=== PATIENT | female | born 1985 | race Caucasian/White ===

== ENCOUNTER 2024-02-25 09:05 | Emergency (ER) | payer MEDICAID, SELFPAY ==
[2024-02-25 09:19] VITALS: BP 99/64; PULSE 73; RESP 16; TEMP 36.6; O2SAT 97; BMI 29.9
--- OUTSIDE RECORDS SUMMARY | 2024-02-25 10:16 | XMS_ITS | Encounter Summary ---
Author Organization [facility] r Address [address] [place] [address] Care Team Providers Care Clinical Cytopathologist Name Role Phone Zunilda Veliz Primary Care Provider Encounter Details Date Type Department Care Team (Late st Contact Info) Description 01/23/2024 Orders Only [facility] [address] [facility] [address] [place] [address] Zunilda Veliz FNP [address] [facility] [address] [place] [address] Encounter for screening for malignant neoplasm of breast, unspecified screening modality Social History Tobacco Use Types Packs/Day Years Used Date Smoking Tobacco: Former Cigarettes 0.5 18 0 06/2003 - 06/2021 Smokeless Tobacco: Never Alcohol Use Standard Drinks/Week Comments No 0 (1 standard drink = 0.6 oz pur e alcohol) PHQ-2 Answer Date Recorded PHQ-2 Score 1 06/30/2021 Domestic Violence Screen Answer Date Re corded Physical Abuse Risk Not At Risk 07/28/2023 Verbal Abuse Risk Not At Risk 07/28/2023 Sex and Gender Information Value Date Recorded Sex Assigned at Female 01/14/2024 3:25 PM MST Gender Identity Female 01/14/2024 3:25 PM MST Sexual Orientation Straight 01/14/2024 3: 25 PM MST Job Start Date Occupation Industry Not on file Not on file Not on file documented as of this encounter Functional Status Functional Status Response Date of Assess ment Are you deaf or do you have difficulty hearing? No 01/12/2022 Are you blind or do you have serious difficulty seeing, even when wearing glasses? No 01/12/2022 Because of a physical, menta l, or emotional condition, do you have difficulty doing errands alone such as visiting a doctor's office or shopping? (15 years old or older) No 01/12/2022 Cognitive Status Response Date of Assessm ent Because of a physical, menta l, or emotional condition, do you have serious difficulty concentrating, remembering, or making decisions? (5 years old or older) No 01/12/2022 documented as of this encounter Plan of Treatment Not on file documented as of this encounter Visit Diagnoses Diagnosis Encounter for screening for malignant neoplasm of breast, unspecified screening modality documented in this encounter Additional Health Concerns Assessment Noted Time PHQ-9 Depression Total Score: 3 06/30/19 22 4:03 PM MST documented as of this encounter Care Teams Clinical Cytopathologist Relationship Specialty Start Date End Date Zunilda Veliz FNP [address] [facility] [address] [place] [id number] PCP - General Nurse Practitioner - Family 01/23/24 documented as of this encounter
--- OUTSIDE RECORDS SUMMARY | 2024-02-25 10:16 | XMS_ITS | Encounter Summary ---
Author Organization [facility] r Address [address] [place] [address] Care Team Providers Care Psychiatric Nurse Name Role Phone Zunilda Veliz Primary Care Provider Reason for Visit * Reason Onset Date Comments Other 01/25/2024 Encounter Details Date Type Department Care Team (Late st Contact Info) Description 01/25/2024 Telephone [facility] [address] [facility] [address] [place] [address] Zunilda Veliz FNP [address] [facility] [address] [place] [address] Other Social History Tobacco Use Types Packs/Day Years [...] No 01/12/2022 documented as of this encounter Progress Notes * Verona Leigh - 01/25/2024 10:12 AM MST Called pt and let her know I faxed the medical clearance form, labs, chest xray and EKG to surgeon,pt expresses understanding. * Kelly Boykin - 01/25/2024 9:36 AM MST Patient called and states she had multiple tests completed on 01/23/2024. Patient states these tests include lab work; UA; x-ray. Patient is requesting for all of these results to be faxed [facility]. Their fax number is , Attn: Vacuum Form Operator. documented in this encounter Plan of Treatment Not on file documented as of this encounter Visit Diagnoses Not on filedocumented in this encounter Additional Health Concerns Assessment Noted Time PHQ-9 Depression Total Score: 3 06/30/19 22 4:03 PM MST documented as of this encounter Care Teams Psychiatric Nurse Relationship Specialty Start Date End Date Zunilda Veliz FNP [address] [facility] [address] [place] [id number] PCP - General Nurse Practitioner - Family 01/23/24 documented as of this encounter
--- OUTSIDE RECORDS SUMMARY | 2024-02-25 10:16 | XMS_ITS | Encounter Summary ---
Author Organization [facility] r Address [address] [place] [address] Care Team Providers Care Powerhouse Tender Name Role Phone Zunilda Veliz ADAM Primary Care Provider Encounter Details Date Type Department Care Team (Latest Contact Info) Description 01/23/2024 Travel Social History Tobacco Use Types Packs/Day Years [...] Sex Assigned at Female 01/14/2024 3:25 PM [facility] Gender Identity Female 01/14/2024 3:25 PM [facility] Sexual Orientation Straight 01/14/2024 3: 25 PM [facility] Job Start Date Occupation Industry Not on [...] documented as of this encounter Care Teams Powerhouse Tender Relationship Specialty Start Date End Date Zunilda Veliz FNP [address] [facility] [address] [place] [address] PCP - General Nurse Practitioner - Family 01/23/24 documented as of this encounter
--- OUTSIDE RECORDS SUMMARY | 2024-02-25 10:16 | XMS_ITS | Clinical Summary ---
Author Organization [facility] r Address [address] [place] [address] Care Team Providers Care Public Safety Officer Name Role Phone Zunilda Veliz Primary Care Provider Allergies Active Allergy Reactions Criticality Noted Date Comments Dairy Products Diarrhea Medium 01/20/2022 Medications Medication Sig Dispensed Refills Start Date End Date Status vitamin multivitamin (THERAGRAN) tablet Take 1 tablet by mouth daily. Active Active Problems Problem Noted Date Diagnosed Date Insomnia 01/24/2022 Depression 01/24/[address] Kay on 01/23/2022 at [facility]. 2021 Fracture of tibial plafond 09/22/2019 Overview: Added automatically from request for surgery [id number] Resolved Problems Problem Noted Date Diagnosed Date Resolved Date Morbid obesity 01/12/2022 11/29/2022 Overview: Added automatically from request for surgery [id number] Encounters Date Type Department Care Team Description 01/25/2024 Telephone [facility] Geena Trejo [address] [place] [address] Zunilda Veliz FNP Other 01/23/2024 1:19 PM [facility] - 01/23/2024 11:59 PM [facility] Hospital Encounter Radiology General [address] [place] [address] Preoperative evaluation to rule out surgical contraindication Discharge Disposition: Home or Self Care 01/23/2024 1:10 PM [facility] Lab Draw IOP [facility]JO [address] [place] [address] [facility] Preoperative evaluation to rule out surgical contraindication 01/23/2024 11:20 AM [facility] Office Visit Karina Espinoza [address] [facility] [address] [place] [address] Zunilda Veliz FNP Preoperative evaluation to rule out surgical contraindication (Primary Dx); Encounter for screening for malignant neoplasm of breast, unspecified screening modality 01/23/2024 Orders Only Karina Espinoza [address] [facility] [address] [address] [place] [address] Zunilda Veliz FNP Encounter for screening for malignant neoplasm of breast, unspecified screening modality 01/23/2024 Travel from Last 3 Months Immunizations Name Administration Dates Next Due Influenza, seasonal, injectable 03/31/2014 MMR 09/14/2014,09/14/2014 PPD 09/16/2014,09/14/2014 tdap 03/31/2014 Family History Medical History Relation Comments Arthritis Mother Asthma Mother Diabetes Mother High Blood Pressure Mother High Cholesterol Mother Obesity Other Aneurysm Paternal Aunt Diabetes Paternal Aunt Relation Status Comments Father Alive Mother Alive Other Paternal Aunt Alive Social History Tobacco Use Types Packs/Day Years [...] Sex Assigned at Female 01/14/2024 3:25 PM [facility] Gender Identity Female 01/14/2024 3:25 PM [facility] Sexual Orientation Straight 01/14/2024 3: 25 PM [facility] Job Start Date Occupation Industry Not on file Not on file Not on file Last Filed Vital Signs Vital Sign Reading Time Taken Comments Blood Pressure 110/70 01/23/2024 11:10 AM [facility] Pulse 78 01/23/2024 11:10 AM [facility] Temperature 36.1 ??C (97 ??F) 01/23/2024 11:10 AM [facility] Respiratory Rate 18 01/23/2024 11:10 AM [facility] Oxygen Saturation 98% 01/23/2024 11:10 AM [facility] Inhaled Oxygen Concentration - - Weight 80.3 kg (177 lb) 01/23/2024 11:10 AM [facility] Height 162.6 cm (5' 4) 01/23/2024 11:10 AM [facility] Body Mass Index 30.38 01/23/2024 11:10 AM [facility] Plan of Treatment Health Maintenance Due Date Last Done Comments Hepatitis B (1 of 3 - 19+ 3-dose series) 2002 Cervical Cancer Screen Standard 3 Year Repeat 05/27/2023 05/27/2020 (Previously completed) Breast Cancer Screening 2023 Influenza (#1) 2023 03/31/2014 COVID-19 Vaccine ( - 2022-2 4 season) 2024 DTaP/Tdap/Td (2 - Td or Tdap) 03/31/2024 03/31/2014 Depression Screening 01/22/2025 01/23/2024, 06/30/2021, 06/30/2021 Hepatitis A Aged Out No longer eligi ble based on patient's age to complete this topic Pneumococcal <65 yr Aged Out No longe r eligible based on patient's age to complete this topic Medical Devices Implanted Type Area Veterinarian Assistant Device Identifier Shelf Expiration Date Model / Serial / Lot Screw Barbie P/T 4.0x38mm # [id number] S&N - [id number] Implanted:Qty: 1 on 09/25/2019 by Lazaro Conte MD at [facility] Screw Left: [employer] [id number] / / Screw Barbie 4.0 X 40mm Part-Thread # [id number] S&N - [id number] Implanted:Qty: 1 on 09/25/2019 by Lazaro Conte MD at [facility] Screw Left: [employer] [id number] / / Casey Barbie P-T 4.0x36mm [id number]# - [id number] Implanted:Qty: 1 on 09/25/2019 by Lazaro Conte MD at [facility] Left: [employer] [id number] / / Casey Valentin P/T 4.0x30mm - [id number] Implanted:Qty: 1 on 09/25/2019 by Lazaro Conte MD at [facility] Left: [employer] [id number] / / Screw Barbie P-T 4.0x34mm Ss - [id number] Implanted:Qty: 1 on 09/25/2019 by Lazaro Conte MD at [facility] Left: [employer] [id number] / / Scrw Barbie F-T 4.0x50 Ss Strl - [id number] Implanted:Qty: 1 on 09/25/2019 by Lazaro Conte MD at [facility] Left: [employer] [id number] / / Procedures Procedure Name Priority Date/Time Associated Diagnosis Comments CHEST PA & LATERAL ROUTINE 01/23/2024 2: 11 PM [facility] Preoperative evaluation to rule out surgical contraindication URINALYSIS (CX IF IND) ROUTINE 01/23/2024 1:04 PM [facility] Preoperative evaluation to rule out surgical contraindication HIV ANTIBODY/ANTIGEN SCREEN W/RFX ROUTINE 01/23/2024 11:53 AM [facility] Preoperative evaluation to rule out surgical contraindication HCG QUALITATIVE ROUTINE 01/23/2024 11:53 AM [facility] Preoperative evaluation to rule out surgical contraindication FREE T4 ROUTINE 01/23/2024 11:53 AM [facility] Preoperative evaluation to rule out surgical contraindication T3 FREE ROUTINE 01/23/2024 11:53 AM [facility] Preoperative evaluation to rule out surgical contraindication ACTIVATED PTT ROUTINE 01/23/2024 11:53 AM [facility] Preoperative evaluation to rule out surgical contraindication PROTIME/INR ROUTINE 01/23/2024 11:53 AM [facility] Preoperative evaluation to rule out surgical contraindication CBC W/AUTO DIFF ROUTINE 01/23/2024 11:53 AM [facility] Preoperative evaluation to rule out surgical contraindication TSH (REFLEX FREE T4) ROUTINE 01/23/2024 11:53 AM [facility] Preoperative evaluation to rule out surgical contraindication HGA1C ROUTINE 01/23/2024 11:53 AM [facility] Preoperative evaluation to rule out surgical contraindication COMP METABOLIC PANEL ROUTINE 01/23/2024 11:53 AM [facility] Preoperative evaluation to rule out surgical contraindication LIPID PANEL ROUTINE 01/23/2024 11:53 AM [facility] Preoperative evaluation to rule out surgical contraindication PREALBUMIN ROUTINE 01/23/2024 11:53 AM [facility] Preoperative evaluation to rule out surgical contraindication ECG 12 LEADS WITH INTERP ROUTINE 01/23/2024 11:43 AM [facility] Preoperative evaluation to rule out surgical contraindication from Last 3 Months Results * Chest 2 views PA and Lateral (01/23/2024 2:11 PM [facility]) Anatomical Region Laterality Modality Chest Radiographic Sanjana ging 01/23/2024 2:19 PM [facility] Impressions 01/23/2024 2:20 PM [facility] No active disease. Narrative 01/23/2024 2:20 PM [facility] -- Final Radiology Report Patient Name: SHARON REIS Date of : 1985 Patient Accession Number: [id number] Date of Service: 01/23/2024 DATE OF EXAM: 01/23/2024 EXAMINATION: CHEST PA AND LATERAL, 1346 hours CLINICAL INDICATION: preoperative clearance. COMPARISON: Radiograph chest, 10/04/2021, [facility] FINDINGS: PA and lateral views of the chest obtained. The lungs are clear of consolidation or edema. The cardiomediastinal silhouette and hilar contours are normal. There is no pneumothorax or pleural effusion. There are no significant osseous abnormalities. Procedure Note Ayush Kim MD - 01/23/2024 [facility] -- Final Radiology Report Patient Name: SHARON REIS Date of : 1985 Patient Accession Number: [id number] Date of Service: 01/23/2024 DATE OF EXAM: 01/23/2024 EXAMINATION: CHEST PA AND LATERAL, 1346 hours CLINICAL INDICATION: preoperative clearance. COMPARISON: Radiograph chest, 10/04/2021, [facility] FINDINGS: PA and lateral views of the chest obtained. The lungs are clear ofconsolidation or edema. The cardiomediastinal silhouette and hilarcontours are normal. There is no pneumothorax or pleural effusion. Thereare no significant osseous abnormalities. IMPRESSION No active disease. Zunilda Veliz [facility] RADIOLOGY GENER AL IMAGING * (ABNORMAL) Urinalysis w Micro (Cx if Ind) (LC [id number] / SQ [id number]) (01/23/2024 1:04 PM [facility]) Color, Urine Yellow Colorless, Yellow 01/23/2024 3:49 PM [facility] Appearance, Urine Clear Clear 01/23/2024 3:49 PM [facility] Specific [place], Urine 1.013 1.005 - 1.030 01/23/2024 3:49 PM [facility] pH, Urine 7.0 4.5 - 8.0 01/23/2024 3:49 PM [facility] Protein, Urine Negative Negative 01/23/2024 3:49 PM [facility] Glucose, Urine 2+(A) Negative 01/23/2024 3:49 PM [facility] Ketones, Urine Negative Negative 01/23/2024 3:49 PM [facility] Bilirubin, Urine Negative Negative 01/23/2024 3:49 PM [facility] Blood, Urine Negative Negative, Trace 01/23/2024 3:49 PM [facility] Leukocytes, Urine Negative Negative 01/23/2024 3:49 PM [facility] Nitrites, Urine Negative Negative 01/23/2024 3:49 PM [facility] Urobilinogen, Urine Normal Normal 01/23/2024 3:49 PM [facility] Urine RBC <1 <=2 /hpf 01/23/2024 3:49 PM [facility] Urine WBC 1 <=5 /hpf 01/23/2024 3:49 PM [facility] Urine Bacteria OCC(A) None seen /hpf 01/23/2024 3:49 PM [facility] Squamous Epithelial Cells FEW(A) None seen /lpf 01/23/2024 3:49 PM [facility] Urine URINE SPECIMEN OBTAINED BY CLEAN CATCH PROCEDURE / Unknown 01/23/2024 1:04 PM [facility] 01/23/2024 1:[address] [facility] - 01/23/2024 3:49 PM [facility] Culture not indicated by urine screen. Zunilda Veliz [facility] URINE ORDER PURA [facility] [address] [place], [place] [address] [phone] * HIV Antibody/Antigen Screen w/Rfx Confirmation (01/23/2024 11:53 AM [facility]) Pathologist [facility] HIV Ab/Ag Screen Non-reacti ve Non-reacti ve 01/23/2024 4:24 PM [facility] Blood VENOUS BLOOD / Unknown Venipuncture / Unknown 01/23/2024 11:53 AM [facility] 01/23/2024 11:53 AM [facility] Narrative [facility] - 01/23/2024 4:24 PM [facility] Considered negative for HIV p24 antigen and HIV specific antibodies; does not require further testing. Zunilda Veliz [facility] BLOOD ORDER PUR[facility] [address] [place], [place] [address] [phone] * (ABNORMAL) Lipid Panel (01/23/2024 11:53 AM [facility]) [facility] Cholesterol 141 <200 mg/dL 01/23/2024 3:48 PM [facility] Triglyceride 54 <150 mg/dL 01/23/2024 3:48 PM [facility] HDL, Direct 39(L) >40 mg/dL 01/23/2024 3:48 PM [facility] LDL Direct 95.00 <100.00 mg/dL 01/23/2024 3:48 PM [facility] VLDL 10.8 01/23/2024 3:48 PM [facility] LDL/HDL Ratio 2.44 0.00 - 3.55 mg/dL 01/23/2024 3:48 PM [facility] Blood VENOUS BLOOD / Unknown Venipuncture / Unknown 01/23/2024 11:53 AM [facility] 01/23/2024 11:[address] [facility] - 01/23/2024 3:48 PM [facility] Total Cholesterol with Risk Classification <200 mg/dL is Desirable 200-239 mg/dL is Borderline High >240 mg/dL is High The guidelines classify HDL- Cholesterol levels as follows: < 40 mg/dL as indicative of a major risk factor for Coronary Heart Disease. > 60 mg/dL as a negative risk factor for Coronary Heart Disease. The guidelines classify LDL - Cholesterol levels as follows: < 100 mg/dL - Optimal 100-129 mg/dL - Near optimal 131-159 mg/dL - Borderline High 160-189 mg/dL - High 190 mg/dL - Very High Triglycerides <150 mg/dL The guidelines classify Triglyceride levels as follows: <150 mg/dL - Normal 150-199 mg/dL - Borderline High 200-499 mg/dL - High 500 mg/dL - Very High Zunilda Veliz [facility] BLOOD ORDER PURA [facility] [address] [place] [address], [facility] [phone] * (ABNORMAL) CBC w/Diff (SQ 3000 / LC [id number]) (01/23/2024 11:53 AM [facility]) [facility] White Cell count 7.9 4.0 - 11.0 10*3/uL 01/23/2024 3:34 PM [facility] Red Cell count 4.29 4.20 - 5.40 m/uL 01/23/2024 3:34 PM [facility] Hemoglobin 14.1 12.0 - 16.0 g/dL 01/23/2024 3:34 PM [facility] HCT 41.6 35.0 - 50.0 % 01/23/2024 3:34 PM [facility] MCV 96.9 80.0 - 100.0 fL 01/23/2024 3:34 PM [facility] MCH 32.8(H) 27.0 - 31.0 pg 01/23/2024 3:34 PM [facility] MCHC 33.8 32.0 - 36.0 g/dL 01/23/2024 3:34 PM [facility] RDW 13.1 11.5 - 14.5 % 01/23/2024 3:34 PM [facility] Platelet count 234 130 - 450 k/uL 01/23/2024 3:34 PM [facility] MPV 10.2 7.4 - 10.4 fL 01/23/2024 3:34 PM [facility] Neutrophils % 60.8 54.0 - 62.0 % 01/23/2024 3:34 PM [facility] Lymphocytes % 30.2 25.0 - 35.0 % 01/23/2024 3:34 PM [facility] Monocytes % 6.9 5.5 - 11.7 % 01/23/2024 3:34 PM [facility] Eosinophils % 1.4 0.0 - 5.0 % 01/23/2024 3:34 PM [facility] Basophils % 0.7 0.0 - 2.9 % 01/23/2024 3:34 PM [facility] Absolute Neutrophils 4.8 1.7 - 7.6 k/uL 01/23/2024 3:34 PM [facility] Absolute Lymphocytes 2.4 1.0 - 3.2 k/uL 01/23/2024 3:34 PM [facility] Absolute Monocytes 0.5 0.3 - 1.1 k/uL 01/23/2024 3:34 PM [facility] Absolute Eosinophils 0.1 0.0 - 0.5 k/uL 01/23/2024 3:34 PM [facility] Absolute Basophils 0.1 0.0 - 0.1 k/uL 01/23/2024 3:34 PM [facility] Blood VENOUS BLOOD / Unknown Venipuncture / Unknown 01/23/2024 11:53 AM [facility] 01/23/2024 11:53 AM [facility] Zunilda Veliz [facility] BLOOD ORDER PURA [facility] [address] [place], [place] [address] [phone] * Tsh (Reflex Free T4) (01/23/2024 11:53 AM [facility]) TSH 2.55 0.45 - 5.33 uIU/mL 01/23/2024 4:04 PM [facility] Blood VENOUS BLOOD / Unknown Venipuncture / Unknown 01/23/2024 11:53 AM [facility] 01/23/2024 11:53 AM [facility] Narrative [facility] - 01/23/2024 4:04 PM [facility] Reference range is for general population including males and non- females, ages 21-88. Reference ranges for individuals are as follows: 1st Trimester: 0.05-3.70 uIU/mL 2nd Trimester: 0.31-4.35 uIU/mL 3rd Trimester: 0.41-5.18 uIU/mL Zunilda Veliz [facility] BLOOD ORDER PURA Performing Organization Address City/[facility] de Phone Number [facility] [address] [place], [place] [address] [phone] * Prealbumin (SQ 9628 / LC [id number]) (01/23/2024 11:53 AM [facility]) Prealbumin 20.0 17.0 - 34.0 mg/dL 01/23/2024 5:01 PM [facility] Blood VENOUS BLOOD / Unknown Venipuncture / Unknown 01/23/2024 11:53 AM [facility] 01/23/2024 11:53 AM [facility] Zunilda Veliz [facility] BLOOD ORDER PURA Performing Organization Address [facility] de Phone Number [facility] [address] [place], [place] [address] [phone] * Free T3 (01/23/2024 11:53 AM [facility]) Free T3 3.48 2.50 - 3.90 pg/mL 01/23/2024 5:00 PM [facility] Blood VENOUS BLOOD / Unknown Venipuncture / Unknown 01/23/2024 11:53 AM [facility] 01/23/2024 11:53 AM [facility] Zunilda Veliz [facility] BLOOD ORDER PURA Performing Organization Address City/[facility]/ZIP Co de Phone Number [facility] [address] [place], [place] [address] [phone] * Activated PTT (SQ 3505 / LC [id number]) (01/23/2024 11:53 AM [facility]) aPTT 28.6 25.1 - 36.5 secs 01/23/2024 3:22 PM [facility] Blood VENOUS BLOOD / Unknown Venipuncture / Unknown 01/23/2024 11:53 AM [facility] 01/23/2024 11:53 AM [facility] Zunilda Veliz [facility] BLOOD ORDER PURA Performing Organization Address [facility] de Phone Number [facility] [address] [place], [place] [address] [phone] * PT/INR (LC [id number]/SQ 3500) (01/23/2024 11:53 AM [facility]) Protime 12.1 9.4 - 12.6 secs 01/23/2024 3:20 PM [facility] INR 1.04 0.90 - 1.20 01/23/2024 3:20 PM [facility] Blood VENOUS BLOOD / Unknown Venipuncture / Unknown 01/23/2024 11:53 AM [facility] 01/23/2024 11:53 AM [facility] Narrative [facility] - 01/23/2024 3:20 PM [facility] THERAPEUTIC RANGES: 2.0-3.0: PROPHYLAXIS, VENOUS THROMBOSIS, PULMONARY EMBOLISM, PREVENTION OF SYSTEMIC EMBOLISM, TISSUE HEART ??VALVES, ACUTE MYOCARDIAL INFARCTION, ??VALVULAR HEART DISEASE, ATRIAL ??FIBRILLATION. 2.5-3.5: RECURRENT SYSTEMIC EMBOLISM, ??MECHANICAL PROSTHETIC VALVES. Zunilda Veliz [employer] LAB BLOOD ORDER PURA Performing Organization Address [facility] Co de Phone Number [facility] [address] [place], [place] [address] [phone] * Free T4 (LC [id number] / SQ 8899) (01/23/2024 11:53 AM [facility]) Pathologist [facility] Free T4 0.740 0.610 - 1.340 ng/dL 01/23/2024 4:05 PM [facility] Blood VENOUS BLOOD / Unknown Venipuncture / Unknown 01/23/2024 11:53 AM [facility] 01/23/2024 11:53 AM [facility] Zunilda Saba Veliz [facility] BLOOD ORDER PURA [facility] [address] [place], [place] [address] [phone] * HCG, Beta Subunit, Qual (SQ 8076 / 196975) (01/23/2024 11:53 AM [facility]) [facility] Serum test Negative Negative 01/23/2024 4:45 PM [facility] Blood VENOUS BLOOD / Unknown Venipuncture / Unknown 01/23/2024 11:53 AM [facility] 01/23/2024 11:53 AM [facility] Zunilda Veliz [facility] BLOOD ORDER [facility] Performing Organization Address City/[facility] Co de Phone Number [facility] [address] [place], [place] [address] [phone] * HgA1c (01/23/2024 11:53 AM [facility]) [facility] Glycosolated Hgb 4.9 4.0 - 5.6 % 01/23/2024 4:26 PM [facility] Estimated Average Glucose (Calculated) 94 mg/dL 01/23/2024 4:26 PM [facility] Blood VENOUS BLOOD / Unknown Venipuncture / Unknown 01/23/2024 11:53 AM [facility] 01/23/2024 11:[address] [facility] - 01/23/2024 4:26 PM [facility] The following HbA1c ranges recommended by the [place] [employer] Association (ADA) may be used as an aid in the diagnosis of diabetes mellitus: >=6.5% Suggested diagnosis: Diabetic 5.7-6.4% Suggested diagnosis: Pre-Diabetic <5.7% Suggested diagnosis: Non-Diabetic Zunilda Veliz [facility] BLOOD ORDER PURA [facility] [address] [place] [address], [facility] [phone] * Comprehensive Metabolic Panel (CMP) (01/23/2024 11:53 AM [facility]) [facility] Glucose 106 74 - 109 mg/dL 01/23/2024 3:48 PM [facility] BUN 9 7 - 25 mg/dL 01/23/2024 3:48 PM [facility] Creatinine 0.8 0.6 - 1.3 mg/dL 01/23/2024 3:48 PM [facility] Bilirubin Total 0.7 0.2 - 1.2 mg/dL 01/23/2024 3:48 PM [facility] Protein, Total 7.8 6.0 - 8.3 g/dL 01/23/2024 3:48 PM [facility] Albumin 4.6 3.5 - 5.7 g/dL 01/23/2024 3:48 PM [facility] [facility] Alkaline Phosphatase 73 35 - 105 u/L 01/23/2024 3:48 PM [facility] AST 22 13 - 39 u/L 01/23/2024 3:48 PM [facility] ALT 23 7 - 52 u/L 01/23/2024 3:48 PM [facility] Calcium 9.3 8.6 - 10.3 mg/dL 01/23/2024 3:48 PM [facility] Sodium 140 136 - 145 mmol/L 01/23/2024 3:48 PM [facility] Potassium 4.1 3.4 - 5.1 mmol/L 01/23/2024 3:48 PM [facility] Chloride 106 98 - 107 mmol/L 01/23/2024 3:48 PM [facility] CO2 26 21 - 31 mmol/L 01/23/2024 3:48 PM [facility] eGFR >60 >=60 mL/min/1.7 3m2 01/23/2024 3:48 PM [facility] Blood VENOUS BLOOD / Unknown Venipuncture / Unknown 01/23/2024 11:53 AM [facility] 01/23/2024 11:53 AM [facility] Narrative [facility] - 01/23/2024 3:48 PM [facility] Albumin Recumbent Adult: 3.5-5.0 g/dL Ambulatory Female: 3.7-5.3 g/dL Ambulatory Male: 4.2-5.5 g/dL Glucose ??FASTING Non-Diabetic ? 70-99 mg/dL Pre-Diabetic ? 100-125 mg/dL Diabetes ? 126 mg/dL or higher ??NON-FASTING Random Glucose ? 70-140 mg/dL 2 hr PP in diabetes ?<=180 mg/dL Random Glucose Diabetic ??>200 mg/dL Z[facility] BLOOD ORDER PURA [facility] [address], [place] [address] [phone] * EKG 12 Lead w/Interp (01/23/2024 11:43 AM [facility]) 01/23/2024 11:4 3 AM [facility] Zunilda SALMERONP EKG AMBULATORY ORDERABLES from Last 3 Months Insurance Payer Benefit Plan / Group Subscriber ID Effective Dates Phone Address Type [facility] Social 2 Step [id number] Effective for all dates [phone] [place] [address] [facility] COMPLETE CARE PLAN [id number] 12/21/2020-Prese nt [address] [place] [id number] [place] [address] [facility] COMPLETE CARE PLAN [id number] 01/26/2019-Kaitlin silva [address] [place] [address] Advance Directives For more information, please contact: [phone] * Full Code (Latest Code Status on File) Date Activated Date Inactivated Comments 01/23/2022 7:14 PM 01/24/2022 3:24 PM * Full Code Date Activated Date Inactivated Comments 09/25/2019 6:39 AM 09/25/2019 12:58 PM Care Teams Public Safety Officer Relationship Specialty Start Date End Date Zunilda Veliz FNP [address] [place] [address] [id number] PCP - General Nurse Practitioner - Family 01/23/24
--- OUTSIDE RECORDS SUMMARY | 2024-02-25 10:16 | XMS_ITS | Encounter Summary ---
Author Organization [facility] Address [address] [place] [address] Care Team Providers Care Plant Superintendent Name Role Phone Zunilda Veliz Primary Care Provider Reason for Referral * Radiology Services (Routine) - Authorized Specialty Diagnoses / Procedures Referred By Filipe silva Referred To Contact Radiology Diagnoses Preoperative evaluation to rule out surgical contraindication Procedures Chest 2 views PA and Lateral Zunilda Veliz FNP [address] [place] [address] Referral ID Status Reason Start Date Expiration Date V isits Requested Visits Authorized [id number] Authorized 01/23/2024 01/22/2025 1 1 [facility] Reason for Visit * Radiology Services (Routine) - Authorized Specialty Diagnoses / Procedures Referred By Filipe silva Referred To Contact Radiology Diagnoses Preoperative evaluation to rule out surgical contraindication Procedures Chest 2 views PA and Lateral Zunilda Veliz FNP [address] [place] [address] Referral ID Status Reason Start Date Expiration Date V isits Requested Visits Authorized [id number] Authorized 01/23/2024 01/22/2025 1 1 Encounter Details Date Type Department Care Team (Latest Contact Info) Description 01/23/2024 1:19 PM [facility] - 01/23/2024 11:59 PM [facility] Hospital Encounter Radiology General [address], [place] [id number] Preoperative evaluation to rule out surgical contraindication Discharge Disposition: Home or Self Care Social History Tobacco Use Types Packs/Day Years [...] Sex Assigned at Female 01/14/2024 3:25 PM [facility] Gender Identity Female 01/14/2024 3:25 PM [facility] Sexual Orientation Straight 01/14/2024 3: 25 PM [facility] Job Start Date Occupation Industry Not on [...] No 01/12/2022 documented as of this encounter Medications at Time of Discharge Medication Sig Dispensed Refills Start Date End Date vitamin multivitamin (THERAGRAN) tablet Take 1 tablet by mouth daily. documented as of this encounter Progress Notes * Zunilda Veliz FNP - 01/24/2024 7:01 AM [facility] Chest x-ray was normal [facility] documented in this encounter Plan of Treatment Not on file documented as of this encounter Procedures Procedure Name Priority Date/Time Associated Diagnosis Comments CHEST PA & LATERAL ROUTINE 01/23/2024 2:11 PM [facility] Preoperative evaluation to rule out surgical contraindication documented in this encounter Results * Chest 2 views PA and Lateral (01/23/2024 2:11 PM [facility]) Anatomical Region Laterality Modality Chest Radiographic Sanjana ging 01/23/2024 2:19 PM [facility] Impressions 01/23/2024 2:20 PM [facility] No active disease. Narrative 01/23/2024 2:20 PM [facility] -- Final Radiology Report Patient Name: TERESA REIS Date of : 1985 Patient Accession Number: [id number] Date of Service: 01/23/2024 DATE OF EXAM: [...] Procedure Note Ayush Kim MD - 01/23/2024 [facility] -- Final Radiology Report Patient Name: TERESA REIS Date of : 1985 Patient Accession Number: [id number] Date of Service: 01/23/2024 DATE OF EXAM: [...] osseous abnormalities. IMPRESSION No active disease. Zunilda [facility] documented in this encounter Visit Diagnoses Diagnosis Preoperative evaluation to rule out surgical contraindication Other specified pre-operative examination documented in this encounter Additional Health Concerns Assessment Noted Time PHQ-9 Depression Total Score: 3 06/30/19 22 4:03 PM [facility] documented as of this encounter Care Teams Plant Superintendent Relationship Specialty Start Date End Date Zunilda Veliz FNP [address] [facility] [address] [facility] [address] [place] [id number] PCP - General Nurse Practitioner - Family 01/23/24 documented as of this encounter
--- OUTSIDE RECORDS SUMMARY | 2024-02-25 10:16 | XMS_ITS | Encounter Summary ---
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 Name Role Phone Zunilda Veliz ADAM Primary Care Provider Encounter Details Date Type Department Care Team (Late st Contact Info) Description 01/23/2024 1:10 PM [facility] Lab Draw IOP [facility] [address] [facility] [address] [address] [place] [phone] [facility], [facility] Preoperative evaluation to rule out surgical contraindication Social History Tobacco Use Types Packs/Day Years [...] Sex Assigned at Female 01/14/2024 3:25 PM [facility] Gender Identity Female 01/14/2024 3:25 PM [facility] Sexual Orientation Straight 01/14/2024 3: 25 PM [facility] Job Start Date Occupation Industry Not on [...] Progress Notes * Zunilda Veliz FNP - 01/23/2024 1:10 PM [facility] Urinalysis was negative for infection. The prealbumin was normal documented in this encounter Plan of Treatment Not on file documented as of this encounter Procedures Procedure Name Priority Date/Time Associated Diagnosis Comments URINALYSIS (CX IF IND) ROUTINE 01/23/2024 1:04 PM [facility] Preoperative evaluation to rule out surgical contraindication PREALBUMIN ROUTINE 01/23/2024 11:53 AM [facility] Preoperative evaluation to rule out surgical contraindication documented in this encounter Results * (ABNORMAL) Urinalysis w Micro (Cx if Ind) (LC [id number] / SQ [id number]) (01/23/2024 1:04 PM [facility]) Color, Urine Yellow Colorless, Yellow 01/23/2024 3:49 PM [facility] Appearance, Urine Clear Clear 01/23/2024 3:49 PM [facility] Specific [place], Urine 1.013 1.005 - 1.030 01/23/2024 3:49 PM [facility] pH, Urine 7.0 4.5 - 8.0 01/23/2024 3:49 PM [facility] Protein, Urine Negative Negative 01/23/2024 3:49 PM [facility] Glucose, Urine 2+(A) Negative 01/23/2024 3:49 PM [facility] Ketones, Urine Negative Negative 01/23/2024 3:49 PM [facility] Bilirubin, Urine Negative Negative 01/23/2024 3:49 PM [facility] Blood, Urine Negative Negative, Trace 01/23/2024 3:49 PM [facility] Leukocytes, Urine Negative Negative 01/23/2024 3:49 PM [facility] Nitrites, Urine Negative Negative 01/23/2024 3:49 PM [facility] Urobilinogen, Urine Normal Normal 01/23/2024 3:49 PM [facility] Urine RBC <1 <=2 /hpf 01/23/2024 3:49 PM [facility] Urine WBC 1 <=5 /hpf 01/23/2024 3:49 PM [facility] Urine Bacteria OCC(A) None seen /hpf 01/23/2024 3:49 PM [facility] Squamous Epithelial Cells FEW(A) None seen /lpf 01/23/2024 3:49 PM [facility] Urine URINE SPECIMEN OBTAINED BY CLEAN CATCH PROCEDURE / Unknown 01/23/2024 1:04 PM [facility] 01/23/2024 1:[address] [facility] - 01/23/2024 3:49 PM [facility] Culture not indicated by urine screen. Zunilda Veliz [facility] URINE ORDER PURA [facility] [address] [place], [place] [address] [phone] * Prealbumin (SQ 9628 / LC [id number]) (01/23/2024 11:53 AM [facility]) Prealbumin 20.0 17.0 - 34.0 mg/dL 01/23/2024 5:01 PM [facility] Blood VENOUS BLOOD / Unknown Venipuncture / Unknown 01/23/2024 11:53 AM [facility] 01/23/2024 11:53 AM [facility] Zunilda Veliz [facility] BLOOD ORDER PURA [facility] [address] [place], [place] [address] [phone] documented in this encounter Visit Diagnoses Diagnosis Preoperative evaluation to rule out surgical contraindication Other specified pre-operative examination documented in this encounter Additional Health Concerns Assessment Noted Time PHQ-9 Depression Total Score: 3 06/30/19 22 4:03 PM [facility] documented as of this encounter Care Teams [employer]rop [place] [employer] Relationship Specialty Start Date End Date Zunilda Veliz FNP [address] [facility] [address] [place] [address] PCP - General Nurse Practitioner - Family 01/23/24 documented as of this encounter
--- OUTSIDE RECORDS SUMMARY | 2024-02-25 10:16 | XMS_ITS | Encounter Summary ---
Author Organization [facility] r Address [address] [place] [address] Care Team Providers Care Energy Rater Name Role Phone Zunilda Veliz Primary Care Provider Reason for Referral * Radiology Services (Routine) - Authorized Specialty Diagnoses / Procedures Referred By Contjami silva Referred To Contact Radiology Diagnoses Preoperative evaluation to rule out surgical contraindication Procedures Chest 2 views PA and Lateral Zunilda Veliz FNP [address] [place] [address] Referral ID Status Reason Start Date Expiration Date V isits Requested Visits Authorized [id number] Authorized 01/23/2024 01/22/2025 1 1 * Radiology Services (Routine) - Authorized Specialty Diagnoses / Procedures Referred By Contact Referred To Contact Radiology - Diagnostic Diagnoses Preoperative evaluation to rule out surgical contraindication Procedures Chest 2 views PA and Lateral Zunilda Veliz FNP [address] [place] [address] [facility] [address] [place] [address] Referral ID Status Reason Start Date Expiration Date V isits Requested Visits Authorized [id number] Authorized 01/23/2024 01/22/2025 1 1 * Other (Routine) - Closed Specialty Diagnoses / Procedures Referred By Filipe silva Referred To Contact Mammography Diagnoses Encounter for screening for malignant neoplasm of breast, unspecified screening modality Procedures Bilateral Digital screening mammogram with CAD Zunilda Veliz FNP [address] [place] [address] Referral ID Status Reason Start Date Expiration Date Visits Re quested Visits Authorized [id number] Closed 01/23/2024 01/22/2025 1 1 [facility] Reason for Visit * Reason Comments MEDICAL CLEARANCE Pt is having surgery on 02/13/24 on [facility] Encounter Details Date Type Department Care Team (Latest Contact Info) Description 01/23/2024 11:20 AM [facility] Office Visit Karina Espinoza [address] [place] [phone] Zunilda Veliz FNP [address] [place], [place] [id number] Preoperative evaluation to rule out surgical contraindication [...] Sex Assigned at Female 01/14/2024 3:25 PM [facility] Gender Identity Female 01/14/2024 3:25 PM [facility] Sexual Orientation Straight 01/14/2024 3: 25 PM [facility] Job Start Date Occupation Industry Not on file Not on file Not on file documented as of this encounter Last Filed Vital Signs Vital Sign Reading Time Taken Comments Blood Pressure 110/70 01/23/2024 11:10 AM [facility] Pulse 78 01/23/2024 11:10 AM [facility] Temperature 36.1 ??C (97 ??F) 01/23/2024 11:10 AM MST Respiratory Rate 18 01/23/2024 11:10 AM MST Oxygen Saturation 98% 01/23/2024 11:10 AM MST Inhaled Oxygen Concentration - - Weight 80.3 kg (177 lb) 01/23/2024 11:10 AM [facility] Height 162.6 cm (5' 4) 01/23/2024 11:10 AM MST Body Mass Index 30.38 01/23/2024 11:10 AM MST documented in this encounter Functional Status Functional Status Response [...] No 01/12/2022 documented as of this encounter Patient Instructions * Patient Instructions* Zunilda Veliz FNP - 01/23/2024 11:20 AM MST documented in this encounter Progress Notes * Zunilda Veliz FNP - 01/23/2024 11:20 AM MST The labs show the cholesterol, thyroid, HIV, kidneys, liver and electrolytes, clotting times are all normal. test is negative. No anemia, infection or diabetes. * Zunilda Veliz FNP - 01/23/2024 11:20 AM MST Subjective: Patient ID: Sharon Reis is a 38 year old female. Chief Complaint: Chief Complaint Patient presents with MEDICAL CLEARANCE Pt is having surgery on 02/13/24 on [facility] HPI Addendum on 01/25/2024: Physical exam is WNL The labs show the prealbumin, cholesterol, thyroid, HIV, kidneys, liver and electrolytes, PT/INR, PTT, urinalysis are all normal. test is negative. No anemia, infection or diabetes. CXR is negative for abnormality 12 lead EKG is normal From a medical perspective there is no abnormality that would necessitate postponing surgical procedure. Sharon is here for preoperative clearance. She is scheduled for liposuction and abdominoplasty. Per her medical form this has to be completed by an MD or DO. 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 There is now documentation that the form can be signed by an CONSTRUCTION SITE MANAGER. This is scanned into the chart. Procedure: Liposuction with fat transfer to buttocks. Abdominoplasty 2 Lipo areas Date of surgery: 02/13/2024 Surgeon: Rafael Christy MD [place], [place] Health Maintenance: Last comprehensive exam: 01/23/2024 Cervical cancer screening: PAP 2020 normal, advised to schedule repeat LMP: 12/27/2023 Contraception: tubal ligation Cholesterol Screenin01/23/2024 TC 141 TRI 54 HDL 39 LDL 95 Diabetes screenin01/23/2024 A1c 4.9 Outpatient Medications Marked as Taking for the 01/23/24 encounter (Office Visit) with Zunilda Veliz FNP Medication Sig Dispense Refill vitamin multivitamin (THERAGRAN) tablet Take 1 tablet by mouth daily. Past Medical History: Diagnosis Date Anxiety state Depression Exercise tolerance finding 01/20/2022 walks 30 min a day no cp, sob or dizziness Frequent UTI GERD (gastroesophageal reflux disease) 09/19/2021 Denies Heartburn acid reflux Past Surgical History: Procedure Laterality Date SECTION x4 FRACTURE SURGERY Left ankle hardware in GASTRIC BYPASS SURGERY 01/23/2022 OTHER SURG HX(HX ONLY) c-sectionx4 OTHER SURG HX(HX ONLY) colonoscopy TUBAL LIGATION Family History Problem Relation Age of Onset Arthritis Mother Asthma Mother Diabetes Mother High Blood Pressure Mother High Cholesterol Mother Aneurysm Paternal Aunt Diabetes Paternal Aunt Obesity Other Review of patient's allergies indicates: Allergen Reactions Dairy Products Diarrhea Immunization History Administered Date(s) Administered Influenza, seasonal, injectable 03/31/2014 MMR 09/14/2014, 09/14/2014 PPD 09/14/2014, 09/16/2014 tdap 03/31/2014 Patient's medications, allergies, past medical, social, surgical and family histories were reviewedand updated as appropriate. Review of Systems Constitutional: Negative. HENT: Negative. Eyes: Negative. Negative for visual disturbance. Respiratory: Negative. Negative for cough and shortness of breath. Cardiovascular: Negative. Negative for chest pain, palpitations and leg swelling. Gastrointestinal: Negative for abdominal pain, constipation, diarrhea, nausea and vomiting. Endocrine: Negative. Negative for cold intolerance. Genitourinary: Negative. Negative for difficulty urinating, dysuria and urgency. Musculoskeletal: Negative. Negative for arthralgias and back pain. Skin: Negative. Allergic/Immunologic: Negative. Neurological: Negative. Negative for dizziness, tremors, weakness and headaches. Hematological: Negative. Psychiatric/Behavioral: Negative. Objective: Blood pressure 110/70, pulse 78, temperature 36.1 ??C (97 ??F), temperature source Temporal, resp. rate 18, height 1.626 m (5' 4), weight 80.3 kg (177 lb), SpO2 98%.Body mass index is 30.38 kg/m??.Pain Score: 0 - No pain Physical Exam Vitals and nursing note reviewed. Constitutional: General: She is not in acute distress. Appearance: Normal appearance. She is obese. She is not ill-appearing. HENT: Head: Normocephalic and atraumatic. Right Ear: Tympanic membrane, ear canal and external ear normal. Left Ear: Tympanic membrane, ear canal and external ear normal. Nose: Nose normal. No congestion or rhinorrhea. Mouth/Throat: Mouth: Mucous membranes are moist. Pharynx: Oropharynx is clear. No oropharyngeal exudate or posterior oropharyngeal erythema. Eyes: General: No scleral icterus. Right eye: No discharge. Left eye: No discharge. Extraocular Movements: Extraocular movements intact. Conjunctiva/sclera: Conjunctivae normal. Pupils: Pupils are equal, round, and reactive to light. Neck: Vascular: No carotid bruit. Cardiovascular: Rate and Rhythm: Normal rate and regular rhythm. Pulses: Normal pulses. Heart sounds: Normal heart sounds. No murmur heard. No friction rub. No gallop. Pulmonary: Effort: Pulmonary effort is normal. No respiratory distress. Breath sounds: Normal breath sounds. No wheezing, rhonchi or rales. Chest: Chest wall: No tenderness. Abdominal: General: Abdomen is flat. Bowel sounds are normal. There is no distension. Palpations: Abdomen is soft. There is no mass. Tenderness: There is no abdominal tenderness. There is no right CVA tenderness, left CVA tenderness, guarding or rebound. Hernia: No hernia is present. Musculoskeletal: General: No swelling, tenderness, deformity or signs of injury. Normal range of motion. Cervical back: Normal range of motion and neck supple. Right lower leg: No edema. Left lower leg: No edema. Lymphadenopathy: Cervical: No cervical adenopathy. Skin: General: Skin is warm and dry. Capillary Refill: Capillary refill takes less than 2 seconds. Coloration: Skin is not jaundiced. Findings: No bruising, erythema, lesion or rash. Neurological: General: No focal deficit present. Mental Status: She is alert and oriented to person, place, and time. Cranial Nerves: No cranial nerve deficit (CN II - XII intact). Sensory: No sensory deficit. Motor: No weakness. Coordination: Coordination normal (Romberg negative). Gait: Gait normal. Deep Tendon Reflexes: Reflexes normal. Comments: SLE negative bilaterally Psychiatric: Mood and Affect: Mood normal. Behavior: Behavior normal. Thought Content: Thought content normal. Judgment: Judgment normal. Procedure Note: EKG in office Normal sinus rhythm No ST-T elevation No ST-T depression No T wave inversion No Q waves LABS: Results for orders placed or performed in visit on 01/23/24 Lipid Panel Result Value Ref Range Cholesterol 141 <200 mg/dL Triglyceride 54 <150 mg/dL HDL, Direct 39 (L) >40 mg/dL LDL Direct 95.00 <100.00 mg/dL VLDL 10.8 LDL/HDL Ratio 2.44 0.00 - 3.55 mg/dL Comprehensive Metabolic Panel (CMP) Result Value Ref Range Glucose 106 74 - 109 mg/dL BUN 9 7 - 25 mg/dL Creatinine 0.8 0.6 - 1.3 mg/dL Bilirubin Total 0.7 0.2 - 1.2 mg/dL Protein, Total 7.8 6.0 - 8.3 g/dL Albumin 4.6 3.5 - 5.7 g/dL Alkaline Phosphatase 73 35 - 105 u/L AST 22 13 - 39 u/L ALT 23 7 - 52 u/L Calcium 9.3 8.6 - 10.3 mg/dL Sodium 140 136 - 145 mmol/L Potassium 4.1 3.4 - 5.1 mmol/L Chloride 106 98 - 107 mmol/L CO2 26 21 - 31 mmol/L eGFR >60 >=60 mL/min/1.73m2 HgA1c Result Value Ref Range Glycosolated Hgb 4.9 4.0 - 5.6 % Estimated Average Glucose (Calculated) 94 mg/dL Tsh (Reflex Free T4) Result Value Ref Range TSH 2.55 0.45 - 5.33 uIU/mL CBC w/Diff (SQ 3000 / LC 480085) Result Value Ref Range White Cell count 7.9 4.0 - 11.0 10*3/uL Red Cell count 4.29 4.20 - 5.40 m/uL Hemoglobin 14.1 12.0 - 16.0 g/dL HCT 41.6 35.0 - 50.0 % MCV 96.9 80.0 - 100.0 fL MCH 32.8 (H) 27.0 - 31.0 pg MCHC 33.8 32.0 - 36.0 g/dL RDW 13.1 11.5 - 14.5 % Platelet count 234 130 - 450 k/uL MPV 10.2 7.4 - 10.4 fL Neutrophils % 60.8 54.0 - 62.0 % Lymphocytes % 30.2 25.0 - 35.0 % Monocytes % 6.9 5.5 - 11.7 % Eosinophils % 1.4 0.0 - 5.0 % Basophils % 0.7 0.0 - 2.9 % Absolute Neutrophils 4.8 1.7 - 7.6 k/uL Absolute Lymphocytes 2.4 1.0 - 3.2 k/uL Absolute Monocytes 0.5 0.3 - 1.1 k/uL Absolute Eosinophils 0.1 0.0 - 0.5 k/uL Absolute Basophils 0.1 0.0 - 0.1 k/uL PT/INR (LC 526502/SQ 3500) Result Value Ref Range Protime 12.1 9.4 - 12.6 secs INR 1.04 0.90 - 1.20 Activated PTT (SQ 3505 / LC 883618) Result Value Ref Range aPTT 28.6 25.1 - 36.5 secs Free T3 Result Value Ref Range Free T3 3.48 2.50 - 3.90 pg/mL Free T4 (LC 569192 / SQ 8899) Result Value Ref Range Free T4 0.740 0.610 - 1.340 ng/dL HCG, Beta Subunit, Qual (SQ 8025 / LC 121942) Result Value Ref Range Serum test Negative Negative HIV Antibody/Antigen Screen w/Rfx Confirmation Result Value Ref Range HIV Ab/Ag Screen Non-reactive Non-reactive No results found. Immunizations Administered on Date of Encounter - 01/23/2024 Never Reviewed No immunizations on file. Not reviewed this visit Assessment: Encounter Diagnoses Name Primary? Preoperative evaluation to rule out surgical contraindication Yes Encounter for screening for malignant neoplasm of breast, unspecified screening modality Plan: Body mass index is 30.38 kg/m??. BMI is above the standard range(BMI greater than or equal to 25). I encouraged exercise. Sharon was seen today for medical clearance. Diagnoses and all orders for this visit: Preoperative evaluation to rule out surgical contraindication Comments: Labs ordered CXR ordered Twelve-lead EKG shows normal sinus rhythm Per medical form needs MD or DO to sign for physical Orders: - Lipid Panel; Future - Comprehensive Metabolic Panel (CMP); Future - HgA1c; Future - Tsh (Reflex Free T4); Future - CBC w/Diff (SQ 3000 / LC 413962); Future - PT/INR (LC 775423/SQ 3500); Future - Activated PTT (SQ 3505 / LC 889401); Future - Urinalysis w Micro (Cx if Ind) (LC 636655 / SQ 01022); Future - EKG 12 Lead w/Interp - Chest 2 views PA and Lateral; Future - Free T3; Future - Free T4 (LC 129708 / SQ 8899); Future - HCG, Beta Subunit, Qual (SQ 8025 / LC 327760); Future - HIV Antibody/Antigen Screen w/Rfx Confirmation; Future - Prealbumin (SQ 9628 / LC 543184); Future - Chest 2 views PA and Lateral; Future Encounter for screening for malignant neoplasm of breast, unspecified screening modality Comments: Mammogram ordered Orders: - Bilateral Digital screening mammogram with CAD; Future Total time spent today reviewing the patients symptoms, current medications, allergies, past medical history, formulating a plan, prescribing medication, documenting, and [id number] with the patient: 40 minutes Patient Instructions * [place] Leigh - 01/23/2024 11:20 AM MST Images from the original note were not included. Have you had a Mammogram? Have you had a Colonoscopy? Have you had a PAP Smear? Pt doesn't remember [facility] - Lab & Imaging Report (Rpt:[id number]) *Part of the Permanent Medical Record* Merge Radiology Image Query Click link to search for all radiology imaging studies for this patient Results EKG 12 Lead w/Interp (Order [id number]) Sharon Reis (CSN: [id number]) (38 year old F) Result Information Status: Final result (Resulted: 01/23/2024 11:43) Provider Status: Open Specimen Information Collected: 01/23/2024 11:43 AM EKG 12 Lead w/Interp Order: [id number] Status: Final result Visible to patient: No (scheduled for 01/23/2024 11:43 AM) Next appt: None Dx: Preoperative evaluation to rule out s... 0 Result Notes Specimen Collected: 01/23/24 11:43 Last Resulted: 01/23/24 11:43 Order Details View Encounter Lab and Collection Details Routing Result History View All Conversations on this Encounter Scans on Order [id number] Scan on 01/23/2024 1143 by [place] Leigh: EKG 01/23/24 Result Care Coordination Patient Communication 01/23/2024 11:43 AM Not seen Back to Top EKG 12 Lead w/Interp: Patient Communication 01/23/2024 11:43 AM Not seen Order Details Order ID [id number] External Results Report Open External Results Report Lab Component SmartPhrase Guide EKG 12 Lead w/Interp (Order #[id number]) on 01/23/24 documented in this encounter Miscellaneous Notes * Addendum Note - Leeanne Wilson, Sociology Research Assistant - 01/23/2024 11:20 AM MSTAddended by: LEEANNE WILSON on: 01/23/2024 01:03 PM Modules accepted: Orders documented in this encounter Plan of Treatment Scheduled Orders Name Type Priority Associated Diagnoses Orde r Schedule Bilateral Digital screening mammogram with CAD Imaging ROUTINE Encounter for screening for malignant neoplasm of breast, unspecified screening modality Expected: 01/23/2024, Expires: 03/24/2025 Chest 2 views PA and Lateral Imaging ROUTINE Preoperative evaluation to rule out surgical contraindication Expected: 01/23/2024, Expires: 01/22/2025 documented as of this encounter Procedures Procedure Name Priority Date/Time Associated Diagnosis Comments HIV ANTIBODY/ANTIGEN SCREEN W/RFX ROUTINE 01/23/2024 11:53 AM [facility] Preoperative evaluation to rule out surgical contraindication LIPID PANEL ROUTINE 01/23/2024 11:53 AM [facility] Preoperative evaluation to rule out surgical contraindication CBC W/AUTO DIFF ROUTINE 01/23/2024 11:53 AM [facility] Preoperative evaluation to rule out surgical contraindication TSH (REFLEX FREE T4) ROUTINE 01/23/2024 11:53 AM [facility] Preoperative evaluation to rule out surgical contraindication T3 FREE ROUTINE 01/23/2024 11:53 AM [facility] Preoperative evaluation to rule out surgical contraindication ACTIVATED PTT ROUTINE 01/23/2024 11:53 AM [facility] Preoperative evaluation to rule out surgical contraindication PROTIME/INR ROUTINE 01/23/2024 11:53 AM [facility] Preoperative evaluation to rule out surgical contraindication FREE T4 ROUTINE 01/23/2024 11:53 AM [facility] Preoperative evaluation to rule out surgical contraindication HCG QUALITATIVE ROUTINE 01/23/2024 11:53 AM [facility] Preoperative evaluation to rule out surgical contraindication HGA1C ROUTINE 01/23/2024 11:53 AM [facility] Preoperative evaluation to rule out surgical contraindication COMP METABOLIC PANEL ROUTINE 01/23/2024 11:53 AM [facility] Preoperative evaluation to rule out surgical contraindication ECG 12 LEADS WITH INTERP ROUTINE 01/23/2024 11:43 AM [facility] Preoperative evaluation to rule out surgical contraindication documented in this encounter Results * Chest 2 views PA and Lateral (01/23/2024 2:11 PM [facility]) Anatomical Region Laterality Modality Chest Radiographic Sanjana ging 01/23/2024 2:19 PM [facility] Impressions 01/23/2024 2:20 PM [facility] No active disease. Narrative 01/23/2024 2:20 PM [facility] -- Final Radiology Report Patient Name: SHARON REIS Date of : 1985 Patient Accession Number: [id number] Date of Service: 01/23/2024 DATE OF EXAM: [...] Procedure Note Ayush Kim MD - 01/23/2024 [facility] -- Final Radiology Report Patient Name: SHARON REIS Date of : 1985 Patient Accession Number: [id number] Date of Service: 01/23/2024 DATE OF EXAM: [...] osseous abnormalities. IMPRESSION No active disease. Zunilda Walter Keren [facility] RADIOLOGY GENER AL IMAGING * (ABNORMAL) Urinalysis w Micro (Cx if Ind) (LC 120771 / SQ 49562) (01/23/2024 1:04 PM [facility]) Color, Urine Yellow Colorless, Yellow 01/23/2024 3:49 PM [facility] Appearance, Urine Clear Clear 01/23/2024 3:49 PM [facility] Specific [place], Urine 1.013 1.005 - 1.030 01/23/2024 3:49 PM [facility] pH, Urine 7.0 4.5 - 8.0 01/23/2024 3:49 PM [facility] Protein, Urine Negative Negative 01/23/2024 3:49 PM [facility] Glucose, Urine 2+(A) Negative 01/23/2024 3:49 PM [facility] Ketones, Urine Negative Negative 01/23/2024 3:49 PM [facility] Bilirubin, Urine Negative Negative 01/23/2024 3:49 PM [facility] Blood, Urine Negative Negative, Trace 01/23/2024 3:49 PM [facility] Leukocytes, Urine Negative Negative 01/23/2024 3:49 PM [facility] Nitrites, Urine Negative Negative 01/23/2024 3:49 PM [facility] Urobilinogen, Urine Normal Normal 01/23/2024 3:49 PM [facility] Urine RBC <1 <=2 /hpf 01/23/2024 3:49 PM [facility] Urine WBC 1 <=5 /hpf 01/23/2024 3:49 PM [facility] Urine Bacteria OCC(A) None seen /hpf 01/23/2024 3:49 PM [facility] Squamous Epithelial Cells FEW(A) None seen /lpf 01/23/2024 3:49 PM [facility] Urine URINE SPECIMEN OBTAINED BY CLEAN CATCH PROCEDURE / Unknown 01/23/2024 1:04 PM [facility] 01/23/2024 1:04 PM [facility] Narrative [facility] - 01/23/2024 3:49 PM [facility] Culture not indicated by urine screen. Zunilda Veliz [facility] URINE ORDER PURA [facility] [address] [place], [place] [address] [phone] * Prealbumin (SQ 4047 / LC 649348) (01/23/2024 11:53 AM [facility]) Prealbumin 20.0 17.0 - 34.0 mg/dL 01/23/2024 5:01 PM [facility] Blood VENOUS BLOOD / Unknown Venipuncture / Unknown 01/23/2024 11:53 AM [facility] 01/23/2024 11:53 AM [facility] Zunilda Veliz [facility] LAB BLOOD ORDER PURA Performing Organization Address City/[facility]/ZIP Co de Phone Number [facility] [address] [place], [place] [address] [phone] * HIV Antibody/Antigen Screen w/Rfx Confirmation (01/23/2024 11:53 AM [facility]) [facility] HIV Ab/Ag Screen Non-reacti ve Non-reacti ve 01/23/2024 4:24 PM [facility] Blood VENOUS BLOOD / Unknown Venipuncture / Unknown 01/23/2024 11:53 AM [facility] 01/23/2024 11:53 AM [facility] Narrative [facility] - 01/23/2024 4:24 PM [facility] Considered negative for HIV p24 antigen and HIV specific antibodies; does not require further testing. Zunilda Veliz [facility] LAB BLOOD ORDER PURA Performing Organization Address [facility]/[place] Co de Phone Number [facility] [address] [place], [place] [address] [phone] * HCG, Beta Subunit, Qual (SQ 8025 / LC 232764) (01/23/2024 11:53 AM [facility]) [facility] Serum test Negative Negative 01/23/2024 4:45 PM [facility] Blood VENOUS BLOOD / Unknown Venipuncture / Unknown 01/23/2024 11:53 AM [facility] 01/23/2024 11:53 AM [facility] Zunilda Veliz [facility] BLOOD ORDER PURA Performing Organization Address City/[facility]/ZIP Co de Phone Number [facility] [address] [place], [place] [address] [phone] * Free T4 (LC 604618 / SQ 8899) (01/23/2024 11:53 AM [facility]) [facility] Free T4 0.740 0.610 - 1.340 ng/dL 01/23/2024 4:05 PM [facility] Blood VENOUS BLOOD / Unknown Venipuncture / Unknown 01/23/2024 11:53 AM [facility] 01/23/2024 11:53 AM [facility] Zunilda Veliz [facility] BLOOD ORDER PURA Performing Organization Address City/[facility]/ZIP Co de Phone Number [facility] [address] [place], [place] [address] [phone] * Free T3 (01/23/2024 11:53 AM [facility]) Free T3 3.48 2.50 - 3.90 pg/mL 01/23/2024 5:00 PM [facility] Blood VENOUS BLOOD / Unknown Venipuncture / Unknown 01/23/2024 11:53 AM MST 01/23/2024 11:53 AM [facility] Zunilda Veliz [facility] LAB BLOOD ORDER PURA Performing Organization Address City/[facility]/[place] Co de Phone Number [facility] [address] [place], [place] [address] [phone] * Activated PTT (SQ 3505 / LC 243842) (01/23/2024 11:53 AM [facility]) aPTT 28.6 25.1 - 36.5 secs 01/23/2024 3:22 PM [facility] Blood VENOUS BLOOD / Unknown Venipuncture / Unknown 01/23/2024 11:53 AM [facility] 01/23/2024 11:53 AM [facility] Zunilda Veliz [facility] LAB BLOOD ORDER PURA Performing Organization Address City/[facility]/ZIP Co de Phone Number [facility] [address] [place], [place] [address] [phone] * PT/INR (LC [id number]/SQ 3500) (01/23/2024 11:53 AM [facility]) Protime 12.1 9.4 - 12.6 secs 01/23/2024 3:20 PM [facility] LABORATORY INR 1.04 0.90 - 1.20 01/23/2024 3:20 PM [facility] Blood VENOUS BLOOD / Unknown Venipuncture / Unknown 01/23/2024 11:53 AM [facility] 01/23/2024 11:53 AM [facility] Narrative [facility] LABORATORY - 01/23/2024 3:20 PM [facility] THERAPEUTIC RANGES: 2.0-3.0: PROPHYLAXIS, VENOUS THROMBOSIS, PULMONARY EMBOLISM, PREVENTION OF SYSTEMIC EMBOLISM, TISSUE HEART ??VALVES, ACUTE MYOCARDIAL INFARCTION, ??VALVULAR HEART DISEASE, ATRIAL ??FIBRILLATION. 2.5-3.5: RECURRENT SYSTEMIC EMBOLISM, ??MECHANICAL PROSTHETIC VALVES. Zunilda Veliz [facility] LAB BLOOD ORDER PURA [facility] [address] [place] [address], [facility] [phone] * (ABNORMAL) CBC w/Diff (SQ 3000 / LC [id number]) (01/23/2024 11:53 AM [facility]) White Cell count 7.9 4.0 - 11.0 10*3/uL 01/23/2024 3:34 PM [facility] Red Cell count 4.29 4.20 - 5.40 m/uL 01/23/2024 3:34 PM [facility] Hemoglobin 14.1 12.0 - 16.0 g/dL 01/23/2024 3:34 PM [facility] HCT 41.6 35.0 - 50.0 % 01/23/2024 3:34 PM [facility] MCV 96.9 80.0 - 100.0 fL 01/23/2024 3:34 PM [facility] MCH 32.8(H) 27.0 - 31.0 pg 01/23/2024 3:34 PM [facility] MCHC 33.8 32.0 - 36.0 g/dL 01/23/2024 3:34 PM [facility] RDW 13.1 11.5 - 14.5 % 01/23/2024 3:34 PM [facility] Platelet count 234 130 - 450 k/uL 01/23/2024 3:34 PM [facility] MPV 10.2 7.4 - 10.4 fL 01/23/2024 3:34 PM [facility] Neutrophils % 60.8 54.0 - 62.0 % 01/23/2024 3:34 PM [facility] Lymphocytes % 30.2 25.0 - 35.0 % 01/23/2024 3:34 PM [facility] Monocytes % 6.9 5.5 - 11.7 % 01/23/2024 3:34 PM [facility] Eosinophils % 1.4 0.0 - 5.0 % 01/23/2024 3:34 PM [facility] Basophils % 0.7 0.0 - 2.9 % 01/23/2024 3:34 PM [facility] Absolute Neutrophils 4.8 1.7 - 7.6 k/uL 01/23/2024 3:34 PM [facility] Absolute Lymphocytes 2.4 1.0 - 3.2 k/uL 01/23/2024 3:34 PM [facility] Absolute Monocytes 0.5 0.3 - 1.1 k/uL 01/23/2024 3:34 PM [facility] Absolute Eosinophils 0.1 0.0 - 0.5 k/uL 01/23/2024 3:34 PM [facility] Absolute Basophils 0.1 0.0 - 0.1 k/uL 01/23/2024 3:34 PM [facility] Blood VENOUS BLOOD / Unknown Venipuncture / Unknown 01/23/2024 11:53 AM [facility] 01/23/2024 11:53 AM [facility] Zunilda Veliz [employer] LAB BLOOD ORDER PURA [facility] [address] [place] [address], [facility] [phone] * Tsh (Reflex Free T4) (01/23/2024 11:53 AM [facility]) TSH 2.55 0.45 - 5.33 uIU/mL 01/23/2024 4:04 PM [facility] Blood VENOUS BLOOD / Unknown Venipuncture / Unknown 01/23/2024 11:53 AM [facility] 01/23/2024 11:53 AM [facility] LABORATORY - 01/23/2024 4:04 PM [facility] Reference range is for general population including males and non- females, ages 21-88. Reference ranges for individuals are as follows: 1st Trimester: 0.05-3.70 uIU/mL 2nd Trimester: 0.31-4.35 uIU/mL 3rd Trimester: 0.41-5.18 uIU/mL Zunilda Veliz [facility] LAB BLOOD ORDER PURA Performing Organization Address [facility]/[place] Co de Phone Number [facility] [address] [place], [place] [address] [phone] * HgA1c (01/23/2024 11:53 AM [facility]) Pathologist [facility] Glycosolated Hgb 4.9 4.0 - 5.6 % 01/23/2024 4:26 PM [facility] Estimated Average Glucose (Calculated) 94 mg/dL 01/23/2024 4:26 PM [facility] Blood VENOUS BLOOD / Unknown Venipuncture / Unknown 01/23/2024 11:53 AM [facility] 01/23/2024 11:[address] [facility] - 01/23/2024 4:26 PM [facility] The following HbA1c ranges recommended by the [place] [employer] (ADA) may be used as an aid in the diagnosis of diabetes mellitus: >=6.5% Suggested diagnosis: Diabetic 5.7-6.4% Suggested diagnosis: Pre-Diabetic <5.7% Suggested diagnosis: Non-Diabetic Zunilda Veliz [facility] LAB BLOOD ORDER PURA Performing Organization Address [facility]/[place] Co de Phone Number [facility] [address] [place], [place] [address] [phone] * Comprehensive Metabolic Panel (CMP) (01/23/2024 11:53 AM [facility]) [facility] Glucose 106 74 - 109 mg/dL 01/23/2024 3:48 PM [facility] LABORATORY BUN 9 7 - 25 mg/dL 01/23/2024 3:48 PM [facility] LABORATORY Creatinine 0.8 0.6 - 1.3 mg/dL 01/23/2024 3:48 PM [facility] LABORATORY Bilirubin Total 0.7 0.2 - 1.2 mg/dL 01/23/2024 3:48 PM [facility] LABORATORY Protein, Total 7.8 6.0 - 8.3 g/dL 01/23/2024 3:48 PM [facility] LABORATORY Albumin 4.6 3.5 - 5.7 g/dL 01/23/2024 3:48 PM [facility] LABORATORY Alkaline Phosphatase 73 35 - 105 u/L 01/23/2024 3:48 PM [facility] LABORATORY AST 22 13 - 39 u/L 01/23/2024 3:48 PM [facility] LABORATORY ALT 23 7 - 52 u/L 01/23/2024 3:48 PM [facility] LABORATORY Calcium 9.3 8.6 - 10.3 mg/dL 01/23/2024 3:48 PM [facility] LABORATORY Sodium 140 136 - 145 mmol/L 01/23/2024 3:48 PM [facility] LABORATORY Potassium 4.1 3.4 - 5.1 mmol/L 01/23/2024 3:48 PM [facility] LABORATORY Chloride 106 98 - 107 mmol/L 01/23/2024 3:48 PM [facility] LABORATORY CO2 26 21 - 31 mmol/L 01/23/2024 3:48 PM [facility] eGFR >60 >=60 mL/min/1.7 3m2 01/23/2024 3:48 PM [facility] Blood VENOUS BLOOD / Unknown Venipuncture / Unknown 01/23/2024 11:53 AM [facility] 01/23/2024 11:53 AM [facility] Narrative [facility] LABORATORY - 01/23/2024 3:48 PM [facility] Albumin Recumbent Adult: 3.5-5.0 g/dL Ambulatory Female: 3.7-5.3 g/dL Ambulatory Male: 4.2-5.5 g/dL Glucose ??FASTING Non-Diabetic ? 70-99 mg/dL Pre-Diabetic ? 100-125 mg/dL Diabetes ? 126 mg/dL or higher ??NON-FASTING Random Glucose ? 70-140 mg/dL 2 hr PP in diabetes ?<=180 mg/dL Random Glucose Diabetic ??>200 mg/dL Zunilda Veliz [employer] LAB BLOOD ORDER PURA [facility] [address] [place] [address], [facility] [phone] * (ABNORMAL) Lipid Panel (01/23/2024 11:53 AM [facility]) [facility] Cholesterol 141 <200 mg/dL 01/23/2024 3:48 PM [facility] Triglyceride 54 <150 mg/dL 01/23/2024 3:48 PM [facility] HDL, Direct 39(L) >40 mg/dL 01/23/2024 3:48 PM [facility] LDL Direct 95.00 <100.00 mg/dL 01/23/2024 3:48 PM [facility] VLDL 10.8 01/23/2024 3:48 PM [facility] LDL/HDL Ratio 2.44 0.00 - 3.55 mg/dL 01/23/2024 3:48 PM [facility] Blood VENOUS BLOOD / Unknown Venipuncture / Unknown 01/23/2024 11:53 AM [facility] 01/23/2024 11:53 AM [facility] Narrative [facility] LABORATORY - 01/23/2024 3:48 PM [facility] Total Cholesterol with Risk Classification <200 mg/dL [...] High 500 mg/dL - Very High Zunilda MEDINA LAB BLOOD ORDER PURA [facility] LABORATORY [address] [place] [address], [facility] [phone] * EKG 12 Lead w/Interp (01/23/2024 11:43 AM MST) 01/23/2024 11:4 3 AM [facility] Zunilda MEDINA EKG AMBULATORY ORDERABLES documented in this encounter Visit Diagnoses Diagnosis Encounter for screening for malignant neoplasm of breast, unspecified screening modality Preoperative evaluation to rule out surgical contraindication Other specified pre-operative examination documented in this encounter Additional Health Concerns Assessment Noted Time PHQ-9 Depression Total Score: 3 06/30/19 22 4:03 PM MST documented as of this encounter Care Teams Energy Rater Relationship Specialty Start Date End Date Zunilda Veliz FNP [id number] [facility] [address] [place] [address] PCP - General Nurse Practitioner - Family 01/23/24 documented as of this encounter
--- OUTSIDE RECORDS SUMMARY | 2024-02-25 10:16 | XMS_ITS | Referral Summary ---
Author Organization [facility] r Address [address] [place] [address] Care Team Providers Care Gravity Prospector Name Role Phone Zunilda Veliz Primary Care Provider Encounters Date Type Department Care Team Description 01/25/2024 Telephone Karina Espinoza [address] [place] [address] Zunilda Veliz FNP Other 01/23/2024 Orders Only TMClint Espinoza [address] [place] [address] Zunilda Veliz FNP Encounter for screening for malignant neoplasm of breast, unspecified screening modality 01/23/2024 1:19 PM [facility] - 01/23/2024 11:59 PM [facility] Hospital Encounter Radiology General [address] [place] [address] Preoperative evaluation to rule out surgical contraindication Discharge Disposition: Home or Self Care 01/23/2024 Travel 01/23/2024 1:10 PM [facility] Lab Draw IOP [address] [place] [address] Geena Jhaveri Preoperative evaluation to rule out surgical contraindication 01/23/2024 11:20 AM [facility] Office Visit Karina Espinoza [address] [place] [address] Zunilda Veliz FNP Preoperative evaluation to rule out surgical contraindication (Primary Dx); Encounter for screening for malignant neoplasm of breast, unspecified screening modality from Last 3 Months Allergies Active Allergy Reactions Criticality Noted Date Comments Dairy Products Diarrhea Medium 01/20/2022 Medications Medication Sig Dispensed Refills Start Date End Date Status vitamin multivitamin (THERAGRAN) tablet Take 1 tablet by mouth daily. Active Active Problems Problem Noted Date Diagnosed Date Insomnia 01/24/2022 Depression 01/24/[address] Kay on 01/23/2022 at [facility] [place]. 2021 Fracture of tibial plafond 09/22/2019 Overview: Added automatically from request for surgery [id number] Resolved Problems Problem Noted Date Diagnosed Date Resolved Date Morbid obesity 01/12/2022 11/29/2022 Overview: Added automatically from request for surgery [id number] Immunizations Name Administration Dates Next Due Influenza, seasonal, injectable 03/31/2014 MMR 09/14/2014,09/14/2014 PPD 09/16/2014,09/14/2014 tdap 03/31/2014 Social History Tobacco Use Types Packs/Day Years [...] Sex Assigned at Female 01/14/2024 3:25 PM [facility] Gender Identity Female 01/14/2024 3:25 PM [facility] Sexual Orientation Straight 01/14/2024 3: 25 PM [facility] Job Start Date Occupation Industry Not on file Not on file Not on file Last Filed Vital Signs Vital Sign Reading Time Taken Comments Blood Pressure 110/70 01/23/2024 11:10 AM [facility] Pulse 78 01/23/2024 11:10 AM [facility] Temperature 36.1 ??C (97 ??F) 01/23/2024 11:10 AM [facility] Respiratory Rate 18 01/23/2024 11:10 AM [facility] Oxygen Saturation 98% 01/23/2024 11:10 AM [facility] Inhaled Oxygen Concentration - - Weight 80.3 kg (177 lb) 01/23/2024 11:10 AM [facility] Height 162.6 cm (5' 4) 01/23/2024 11:10 AM [facility] Body Mass Index 30.38 01/23/2024 11:10 AM [facility] Functional Status Functional Status Response Date of [...] (5 years old or older) No 01/12/2022 Plan of Treatment Not on file Medical Devices Implanted Type Area [employer] Service Technician Device Identifier Shelf Expiration Date Model / Serial / Lot Screw Barbie P/T 4.0x38mm # [id number] S&N - [id number] Implanted:Qty: 1 on 09/25/2019 by Lazaro Conte MD at [facility] [place] Screw Left: [employer] [id number] / / Screw Barbie 4.0 X 40mm Part-Thread # [id number] S&N - [id number] Implanted:Qty: 1 on 09/25/2019 by Lazaro Conte MD at [facility] [place] Screw Left: [employer] [id number] / / Scrw Barbie P-T 4.0x36mm [id number] - [id number] Implanted:Qty: 1 on 09/25/2019 by Lazaro Conte MD at [facility] [place] Left: [employer] [id number] / / Scrw Barbie P/T 4.0x30mm - [id number] Implanted:Qty: 1 on 09/25/2019 by Lazaro Conte MD at [facility] [place] Left: [employer] [id number] / / Screw Barbie P-T 4.0x34mm Ss - [id number] Implanted:Qty: 1 on 09/25/2019 by Lazaro Conte MD at [facility] [place] Left: [employer] [id number] / / Scrw Barbie F-T 4.0x50 [facility] - [id number] Implanted:Qty: 1 on 09/25/2019 by Lazaro Conte MD at [facility] [place] Left: [employer] [id number] / / Procedures Procedure Name Priority Date/Time Associated Diagnosis Comments CHEST PA & LATERAL ROUTINE 01/23/2024 2: 11 PM [facility] Preoperative evaluation to rule out surgical contraindication URINALYSIS (CX IF IND) ROUTINE 01/23/2024 1:04 PM [facility] Preoperative evaluation to rule out surgical contraindication HIV ANTIBODY/ANTIGEN SCREEN W/RFX ROUTINE 01/23/2024 11:53 AM [facility] Preoperative evaluation to rule out surgical contraindication HCG QUALITATIVE ROUTINE 01/23/2024 11:53 AM [facility] Preoperative evaluation to rule out surgical contraindication FREE T4 ROUTINE 01/23/2024 11:53 AM [facility] Preoperative evaluation to rule out surgical contraindication T3 FREE ROUTINE 01/23/2024 11:53 AM [facility] Preoperative evaluation to rule out surgical contraindication ACTIVATED PTT ROUTINE 01/23/2024 11:53 AM [facility] Preoperative evaluation to rule out surgical contraindication PROTIME/INR ROUTINE 01/23/2024 11:53 AM [facility] Preoperative evaluation to rule out surgical contraindication CBC W/AUTO DIFF ROUTINE 01/23/2024 11:53 AM [facility] Preoperative evaluation to rule out surgical contraindication TSH (REFLEX FREE T4) ROUTINE 01/23/2024 11:53 AM [facility] Preoperative evaluation to rule out surgical contraindication HGA1C ROUTINE 01/23/2024 11:53 AM [facility] Preoperative evaluation to rule out surgical contraindication COMP METABOLIC PANEL ROUTINE 01/23/2024 11:53 AM [facility] Preoperative evaluation to rule out surgical contraindication LIPID PANEL ROUTINE 01/23/2024 11:53 AM [facility] Preoperative evaluation to rule out surgical contraindication PREALBUMIN ROUTINE 01/23/2024 11:53 AM [facility] Preoperative evaluation to rule out surgical contraindication ECG 12 LEADS WITH INTERP ROUTINE 01/23/2024 11:43 AM [facility] Preoperative evaluation to rule out surgical contraindication from Last 3 Months Results * Chest 2 views PA and Lateral (01/23/2024 2:11 PM [facility]) Anatomical Region Laterality Modality Chest Radiographic Sanjana ging 01/23/2024 2:19 PM [facility] Impressions 01/23/2024 2:20 PM [facility] No active disease. Narrative 01/23/2024 2:20 PM [facility] -- Final Radiology Report Patient Name: SHARON REIS Date of : 1985 Patient Accession Number: [id number] Date of Service: 01/23/2024 DATE OF EXAM: [...] Procedure Note Ayush Kim MD - 01/23/2024 [facility] -- Final Radiology Report Patient Name: SHARON REIS Date of : 1985 Patient Accession Number: [id number] Date of Service: 01/23/2024 DATE OF EXAM: [...] Urinalysis w Micro (Cx if Ind) (LC [id number] / SQ [id number]) (01/23/2024 1:04 PM [facility]) Color, Urine Yellow Colorless, Yellow 01/23/2024 3:49 PM [facility] Appearance, Urine Clear Clear 01/23/2024 3:49 PM [facility] Specific [place], Urine 1.013 1.005 - 1.030 01/23/2024 3:49 PM [facility] pH, Urine 7.0 4.5 - 8.0 01/23/2024 3:49 PM [facility] Protein, Urine Negative Negative 01/23/2024 3:49 PM [facility] Glucose, Urine 2+(A) Negative 01/23/2024 3:49 PM [facility] Ketones, Urine Negative Negative 01/23/2024 3:49 PM [facility] Bilirubin, Urine Negative Negative 01/23/2024 3:49 PM [facility] Blood, Urine Negative Negative, Trace 01/23/2024 3:49 PM [facility] Leukocytes, Urine Negative Negative 01/23/2024 3:49 PM [facility] Nitrites, Urine Negative Negative 01/23/2024 3:49 PM [facility] Urobilinogen, Urine Normal Normal 01/23/2024 3:49 PM [facility] Urine RBC <1 <=2 /hpf 01/23/2024 3:49 PM [facility] Urine WBC 1 <=5 /hpf 01/23/2024 3:49 PM [facility] Urine Bacteria OCC(A) None seen /hpf 01/23/2024 3:49 PM [facility] Squamous Epithelial Cells FEW(A) None seen /lpf 01/23/2024 3:49 PM [facility] Urine URINE SPECIMEN OBTAINED BY CLEAN CATCH PROCEDURE / Unknown 01/23/2024 1:04 PM [facility] 01/23/2024 1:04 PM [facility] Narrative [facility] - 01/23/2024 3:49 PM [facility] Culture not indicated by urine screen. Zunilda Veliz [facility] URINE ORDER PURA [facility] [address] [place] [address], [facility] [phone] * HIV Antibody/Antigen Screen w/Rfx Confirmation (01/23/2024 11:53 AM [facility]) HIV Ab/Ag Screen Non-reacti ve Non-reacti ve 01/23/2024 4:24 PM [facility] Blood VENOUS BLOOD / Unknown Venipuncture / Unknown 01/23/2024 11:53 AM [facility] 01/23/2024 11:53 AM [facility] - 01/23/2024 4:24 PM [facility] Considered negative for HIV p24 antigen and HIV specific antibodies; does not require further testing. Zunilda Veliz [facility] BLOOD ORDER PURA [facility] [address] [place] [address], [facility] [phone] * (ABNORMAL) Lipid Panel (01/23/2024 11:53 AM [facility]) Pathologist [facility] Cholesterol 141 <200 mg/dL 01/23/2024 3:48 PM [facility] Triglyceride 54 <150 mg/dL 01/23/2024 3:48 PM [facility] HDL, Direct 39(L) >40 mg/dL 01/23/2024 3:48 PM [facility] LDL Direct 95.00 <100.00 mg/dL 01/23/2024 3:48 PM [facility] VLDL 10.8 01/23/2024 3:48 PM [facility] LDL/HDL Ratio 2.44 0.00 - 3.55 mg/dL 01/23/2024 3:48 PM [facility] Blood VENOUS BLOOD / Unknown Venipuncture / Unknown 01/23/2024 11:53 AM [facility] 01/23/2024 11:53 AM [facility] - 01/23/2024 3:48 PM [facility] Total Cholesterol with Risk Classification [...] High 500 mg/dL - Very High Zunilda Walter Keren [facility] BLOOD ORDER PURA [facility] [address] [place] [address], [facility] [phone] * (ABNORMAL) CBC w/Diff (SQ 3000 / LC [id number]) (01/23/2024 11:53 AM [facility]) [facility] Signature White Cell count 7.9 4.0 - 11.0 10*3/uL 01/23/2024 3:34 PM [facility] Red Cell count 4.29 4.20 - 5.40 m/uL 01/23/2024 3:34 PM [facility] Hemoglobin 14.1 12.0 - 16.0 g/dL 01/23/2024 3:34 PM [facility] HCT 41.6 35.0 - 50.0 % 01/23/2024 3:34 PM [facility] MCV 96.9 80.0 - 100.0 fL 01/23/2024 3:34 PM [facility] MCH 32.8(H) 27.0 - 31.0 pg 01/23/2024 3:34 PM [facility] MCHC 33.8 32.0 - 36.0 g/dL 01/23/2024 3:34 PM [facility] RDW 13.1 11.5 - 14.5 % 01/23/2024 3:34 PM [facility] Platelet count 234 130 - 450 k/uL 01/23/2024 3:34 PM [facility] MPV 10.2 7.4 - 10.4 fL 01/23/2024 3:34 PM [facility] Neutrophils % 60.8 54.0 - 62.0 % 01/23/2024 3:34 PM [facility] Lymphocytes % 30.2 25.0 - 35.0 % 01/23/2024 3:34 PM [facility] Monocytes % 6.9 5.5 - 11.7 % 01/23/2024 3:34 PM [facility] Eosinophils % 1.4 0.0 - 5.0 % 01/23/2024 3:34 PM [facility] Basophils % 0.7 0.0 - 2.9 % 01/23/2024 3:34 PM [facility] Absolute Neutrophils 4.8 1.7 - 7.6 k/uL 01/23/2024 3:34 PM [facility] Absolute Lymphocytes 2.4 1.0 - 3.2 k/uL 01/23/2024 3:34 PM [facility] Absolute Monocytes 0.5 0.3 - 1.1 k/uL 01/23/2024 3:34 PM [facility] Absolute Eosinophils 0.1 0.0 - 0.5 k/uL 01/23/2024 3:34 PM [facility] Absolute Basophils 0.1 0.0 - 0.1 k/uL 01/23/2024 3:34 PM [facility] Blood VENOUS BLOOD / Unknown Venipuncture / Unknown 01/23/2024 11:53 AM [facility] 01/23/2024 11:53 AM [facility] Zunilda Veliz [facility] BLOOD ORDER PURA [facility] [address] [place], [place] [address] [phone] * Tsh (Reflex Free T4) (01/23/2024 11:53 AM [facility]) TSH 2.55 0.45 - 5.33 uIU/mL 01/23/2024 4:04 PM [facility] Blood VENOUS BLOOD / Unknown Venipuncture / Unknown 01/23/2024 11:53 AM [facility] 01/23/2024 11:53 AM [facility] Narrative [facility] - 01/23/2024 4:04 PM [facility] Reference range is for general population including males and non- females, ages 21-88. Reference ranges for individuals are as follows: 1st Trimester: 0.05-3.70 uIU/mL 2nd Trimester: 0.31-4.35 uIU/mL 3rd Trimester: 0.41-5.18 uIU/mL Zunilda Veliz [facility] BLOOD ORDER PURA Performing Organization Address City/[facility]/ZIP Co de Phone Number [facility] [address] [place], [place] [address] [phone] * Prealbumin (SQ 9628 / LC [id number]) (01/23/2024 11:53 AM [facility]) Prealbumin 20.0 17.0 - 34.0 mg/dL 01/23/2024 5:01 PM [facility] Blood VENOUS BLOOD / Unknown Venipuncture / Unknown 01/23/2024 11:53 AM [facility] 01/23/2024 11:53 AM [facility] Zunilda Veliz [facility] BLOOD ORDER PURA Performing Organization Address [facility] Co de Phone Number [facility] [address] [place], [place] [address] [phone] * Free T3 (01/23/2024 11:53 AM [facility]) Free T3 3.48 2.50 - 3.90 pg/mL 01/23/2024 5:00 PM [facility] Blood VENOUS BLOOD / Unknown Venipuncture / Unknown 01/23/2024 11:53 AM [facility] 01/23/2024 11:53 AM [facility] Zunilda Veliz [facility] BLOOD ORDER PURA Performing Organization Address City/[facility] Co de Phone Number [facility] [address] [place], [place] [address] [phone] * Activated PTT (SQ 3505 / LC [id number]) (01/23/2024 11:53 AM [facility]) aPTT 28.6 25.1 - 36.5 secs 01/23/2024 3:22 PM [facility] Blood VENOUS BLOOD / Unknown Venipuncture / Unknown 01/23/2024 11:53 AM [facility] 01/23/2024 11:53 AM [facility] Zunilda Veliz [facility] BLOOD ORDER PURA Performing Organization Address City/[facility]/ZIP Co de Phone Number [facility] [address] [place], [place] [address] [phone] * PT/INR ( [id number]/SQ 3500) (01/23/2024 11:53 AM [facility]) Pathologist [facility] Protime 12.1 9.4 - 12.6 secs 01/23/2024 3:20 PM [facility] INR 1.04 0.90 - 1.20 01/23/2024 3:20 PM [facility] Blood VENOUS BLOOD / Unknown Venipuncture / Unknown 01/23/2024 11:53 AM [facility] 01/23/2024 11:53 AM [facility] Narrative [facility] - 01/23/2024 3:20 PM [facility] THERAPEUTIC RANGES: 2.0-3.0: PROPHYLAXIS, VENOUS THROMBOSIS, PULMONARY EMBOLISM, PREVENTION OF SYSTEMIC EMBOLISM, TISSUE HEART ??VALVES, ACUTE MYOCARDIAL INFARCTION, ??VALVULAR HEART DISEASE, ATRIAL ??FIBRILLATION. 2.5-3.5: RECURRENT SYSTEMIC EMBOLISM, ??MECHANICAL PROSTHETIC VALVES. Zunilda Veliz [facility] BLOOD ORDER PURA Performing Organization Address [facility] Co de Phone Number [facility] [address] [place], [place] [address] [phone] * Free T4 (LC [id number] / SQ 8899) (01/23/2024 11:53 AM [facility]) Pathologist [facility] Free T4 0.740 0.610 - 1.340 ng/dL 01/23/2024 4:05 PM [facility] Blood VENOUS BLOOD / Unknown Venipuncture / Unknown 01/23/2024 11:53 AM [facility] 01/23/2024 11:53 AM [facility] Zunilda Walter Keren [facility] BLOOD ORDER PURA [facility] [address] [place], [place] [address] [phone] * HCG, Beta Subunit, Qual (SQ 8025 / [id number]) (01/23/2024 11:53 AM [facility]) Serum test Negative Negative 01/23/2024 4:45 PM [facility] Blood VENOUS BLOOD / Unknown Venipuncture / Unknown 01/23/2024 11:53 AM [facility] 01/23/2024 11:53 AM [facility] Zunilda Walter Keren [facility] BLOOD ORDER PURA Performing Organization Address [facility] Co de Phone Number [facility] [address] [place], [place] [address] [phone] * HgA1c (01/23/2024 11:53 AM [facility]) Pathologist [facility] Glycosolated Hgb 4.9 4.0 - 5.6 % 01/23/2024 4:26 PM [facility] Estimated Average Glucose (Calculated) 94 mg/dL 01/23/2024 4:26 PM [facility] Blood VENOUS BLOOD / Unknown Venipuncture / Unknown 01/23/2024 11:53 AM [facility] 01/23/2024 11:53 AM [facility] - 01/23/2024 4:26 PM [facility] The following HbA1c ranges recommended by the [place] [employer] (ADA) may be used as an aid in the diagnosis of diabetes mellitus: >=6.5% Suggested diagnosis: Diabetic 5.7-6.4% Suggested diagnosis: Pre-Diabetic <5.7% Suggested diagnosis: Non-Diabetic Zunilda Veliz [facility] BLOOD ORDER PURA Performing Organization Address City/[facility]/ZIP Co de Phone Number [facility] [address] [place], [place] [address] [phone] * Comprehensive Metabolic Panel (CMP) (01/23/2024 11:53 AM [facility]) [facility] Glucose 106 74 - 109 mg/dL 01/23/2024 3:48 PM [facility] BUN 9 7 - 25 mg/dL 01/23/2024 3:48 PM [facility] Creatinine 0.8 0.6 - 1.3 mg/dL 01/23/2024 3:48 PM [facility] Bilirubin Total 0.7 0.2 - 1.2 mg/dL 01/23/2024 3:48 PM [facility] Protein, Total 7.8 6.0 - 8.3 g/dL 01/23/2024 3:48 PM [facility] Albumin 4.6 3.5 - 5.7 g/dL 01/23/2024 3:48 PM [facility] Alkaline Phosphatase 73 35 - 105 u/L 01/23/2024 3:48 PM [facility] AST 22 13 - 39 u/L 01/23/2024 3:48 PM [facility] ALT 23 7 - 52 u/L 01/23/2024 3:48 PM [facility] Calcium 9.3 8.6 - 10.3 mg/dL 01/23/2024 3:48 PM [facility] Sodium 140 136 - 145 mmol/L 01/23/2024 3:48 PM [facility] Potassium 4.1 3.4 - 5.1 mmol/L 01/23/2024 3:48 PM [facility] Chloride 106 98 - 107 mmol/L 01/23/2024 3:48 PM [facility] CO2 26 21 - 31 mmol/L 01/23/2024 3:48 PM [facility] eGFR >60 >=60 mL/min/1.7 3m2 01/23/2024 3:48 PM [facility] Blood VENOUS BLOOD / Unknown Venipuncture / Unknown 01/23/2024 11:53 AM [facility] 01/23/2024 11:53 AM [facility] - 01/23/2024 3:48 PM MST Albumin Recumbent Adult: 3.5-5.0 g/dL Ambulatory Female: 3.7-5.3 g/dL Ambulatory Male: 4.2-5.5 g/dL Glucose ??FASTING Non-Diabetic ? 70-99 mg/dL Pre-Diabetic ? 100-125 mg/dL Diabetes ? 126 mg/dL or higher ??NON-FASTING Random Glucose ? 70-140 mg/dL 2 hr PP in diabetes ?<=180 mg/dL Random Glucose Diabetic ??>200 mg/dL [facility]unilda [facility] LAB BLOOD ORDER PURA [facility] [address] [place] [address], [facility] [phone] * EKG 12 Lead w/Maryjane (01/23/2024 11:43 AM MST) 01/23/2024 11:4 3 AM MST Zunilda [facility] EKG AMBULATORY ORDERABLES from Last 3 Months Insurance Payer Benefit Plan / Group Subscriber ID Effective Dates Phone Address Type [facility] [id number] Effective for all dates [address] [place] [address] [facility] [employer] [id number] 12/21/2020-Ray nt [address] [place] [address] [facility] [employer] [id number] 01/26/2019-Kaitlin t [address] [place] [address] Advance Directives For more information, please contact: [phone] * Full Code (Latest Code Status on File) Date Activated Date Inactivated Comments 01/23/2022 7:14 PM 01/24/2022 3:24 PM * Full Code Date Activated Date Inactivated Comments 09/25/2019 6:39 AM 09/25/2019 12:58 PM Care Teams Gravity Prospector Relationship Specialty Start Date End Date Zunilda Veliz FNP [address] [place] [address] PCP - General Nurse Practitioner - Family 01/23/24
--- OUTSIDE RECORDS SUMMARY | 2024-02-25 10:17 | XMS_ITS | Encounter Summary ---
Author Organization [facility] r Address [address] [place] [address] Care Team Providers Care Bottle Washing Machine Operator Name Role Phone Keren Zunilda Walter [employer] Primary Care Provider Zunilda Veliz [facility] Primary Care Provider Encounter Details Date Type Department Care Team (Late st Contact Info) Description 02/23/2022 Patient Outreach Nurse Navigator [id number] [phone] Brit Montague, RN Social History Tobacco Use Types Packs/Day Years Used Date Smoking Tobacco: Every Day Cigarettes 0.5 18 Started: 06/2003; Last attempted to quit: 06/2021 Smokeless Tobacco: Never Alcohol Use Standard Drinks/Week Comments No 0 (1 standard drink = 0.6 oz pur e alcohol) PHQ-2 Answer Date Recorded PHQ-2 Score 1 06/30/2021 Sex and Gender Information Value Date Recorded Sex Assigned at Female 01/14/2024 3:25 PM [facility] Gender Identity Female 01/14/2024 3:25 PM [facility] Sexual Orientation Straight 01/14/2024 3: 25 PM [facility] Job Start Date Occupation Industry Not on file Not on file Not on file COVID-19 Exposure Response Date Recorded In the last 10 days, have yo u been in contact with someone who was confirmed or suspected to have Coronavirus/COVID-19? No / Unsure 02/22/2022 3:03 AM MST documented as of this encounter Functional Status [...] as of this encounter Progress Notes * Brit Montague RN - 02/23/2022 12:09 PM MSTSummary: Running Specialist Follow Up Spoke with patient. Bariatric: Follow up Questionnaire completed. Found in Letter tab. documented in this encounter Plan of Treatment Not on file documented as of this encounter Visit Diagnoses Not on filedocumented in this encounter Additional Health Concerns Assessment Noted Time PHQ-9 Depression Total Score: 3 06/30/19 22 4:03 PM MST documented as of this encounter Care Teams Bottle Washing Machine Operator Relationship Specialty Start Date End Date Zunilda Veliz FNP PCP - General Nurse Practitioner - Family 02/22/22 Zunilda Veliz FNP [address] [facility] [address] [place] [id number] PCP - General Nurse Practitioner - Family 01/23/24 documented as of this encounter
--- OUTSIDE RECORDS SUMMARY | 2024-02-25 10:17 | XMS_ITS | Encounter Summary ---
Author Organization [facility] r Address [address] [place] [address] Care Team Providers Care Painter Helper Spray Name Role Phone Keren Zunilda SALMERONP Primary Care Provider Zunilda Veliz [facility] Primary Care Provider Encounter Details Date Type Department Care Team (Late st Contact Info) Description 08/22/2023 Patient Outreach Nurse Navigator [address] [phone] [place] [phone] (Work) Social History Tobacco Use Types Packs/Day Years [...] Sex Assigned at Female 01/14/2024 3:25 PM [facility] Gender Identity Female 01/14/2024 3:25 PM [facility] Sexual Orientation Straight 01/14/2024 3: 25 PM [facility] Job Start Date Occupation Industry Not [...] as of this encounter Progress Notes * Jessie Erickson, RN - 08/22/2023 4:19 PM MSTSummary: Bariatric Surgery- Residential Follow Up Attempted long-term follow-up for the bariatric patient. Emailed patient. Second attempt includes a letter mailed to patient to encourage scheduling follow-up appointment with surgical team. documented in this encounter Plan of Treatment Not on file documented as of this encounter Visit Diagnoses Not on filedocumented in this encounter Additional Health Concerns Assessment Noted Time PHQ-9 Depression Total Score: 3 06/30/19 22 4:03 PM MST documented as of this encounter Care Teams Painter Helper Spray Relationship Specialty Start Date End Date Zunilda Veliz FNP PCP - General Nurse Practitioner - Family 02/22/22 Zunilda Veliz FNP [address] [facility] [address] [place] [id number] PCP - General Nurse Practitioner - Family 01/23/24 documented as of this encounter
--- OUTSIDE RECORDS SUMMARY | 2024-02-25 10:17 | XMS_ITS | Encounter Summary ---
Author Organization [facility] r Address [address] [place] [address] Care Team Providers Care Pipe Bowls Paint Trimmer Name Role Phone Keren Zunilda SALMERONP Primary Care Provider Zunilda Veliz [facility] Primary Care Provider Encounter Details Date Type Department Care Team (Late st Contact Info) Description 08/30/2023 Patient Outreach Nurse Navigator [phone] [phone] [place] [phone] (Work) Social History Tobacco Use Types Packs/Day [...] Sex Assigned at Female 01/14/2024 3:25 PM [facility] Gender Identity Female 01/14/2024 3:25 PM [facility] Sexual Orientation Straight 01/14/2024 3: 25 PM [facility] Job Start Date Occupation Industry Not [...] of this encounter Progress Notes * Jessie Erickson RN - 08/30/2023 4:54 PM MSTSummary: Bariatric Surgery- Retirement Follow Up Returned letter attempt for long-term follow up - Bariatrics. [place] postal note: Forward time exp, return to sender New address provided will re send the letter to the new address. documented in this encounter Plan of Treatment Not on file documented as of this encounter Visit Diagnoses Not on filedocumented in this encounter Additional Health Concerns Assessment Noted Time PHQ-9 Depression Total Score: 3 06/30/19 22 4:03 PM MST documented as of this encounter Care Teams Pipe Bowls Paint Trimmer Relationship Specialty Start Date End Date Zunilda Veliz FNP PCP - General Nurse Practitioner - Family 02/22/22 Zunilda Veliz FNP [address] [facility] [address] [place] [id number] PCP - General Nurse Practitioner - Family 01/23/24 documented as of this encounter
--- NOTE | 2024-02-25 12:00 | ED.GENADULT ---
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 She had a tummy tuck done in [place] on February 12. She says that she was told had the drains pulled 1 on day 5 and 1 on day 10. She presents today saying that this is the 1st chance she has had to stop and have them pulled. She says she is doing well, drainage is down to less than 25 mL in 24 hour period. Related Data Home Medications ?Medication ?Instructions ?Recorded ?Confirmed No Known Home Medications 02/25/24 02/25/24 Allergies Allergy/AdvReac Type Severity Reaction Status Date / Time ibuprofen AdvReac Mild Verified 02/25/24 09:23 PFS PFS Social History Smoking Status: Never smoker Do you use any of these nicotine containing products: None How often do you have a drink containing alcohol: never How often do you have six or more drinks on one occasion: Never AUDIT-C Alcohol total score: 0 Non-prescribed substance use: denies use Exam Narrative: Exam Narrative: Vital signs reviewed In general, alert, nontoxic woman. Abdomen: She has a healing incision which looks to be in good shape, no significant erythema or evidence of dehiscence. She has a SVEN drain in the groin bilaterally, scant amount of slightly bloody fluid in each of the drains. No purulence. No surrounding erythema or swelling. Const: Vital Signs, click to edit/add: Vital Signs - 24 hr 02/25/24 09:19 Temperature 97.8 F Pulse Rate [Pulse Oximeter] 73 Respiratory Rate 16 Blood Pressure [Ri ght Upper Arm] 99/64 Pulse Oximetry 97 Oxygen Delivery Me thod Room Air Course Course ED Course: I did discuss this briefly with Dr. Jansen who felt it was reasonable to take these out. Discussed with patient obviously a think she should have follow-up with her surgeon when she returns to [place] which she tells me will be in a couple of weeks. For today, I pulled both drains without incident. Antibiotic ointment and a bandage were placed over both sites. Keep these clean and protected. Advised that she will probably have a little bit of drainage over the next couple of days, for significant drainage, worsening swelling, redness pain fevers etcetera she should be seen again right away. Vital Signs Vital signs: Initial Vital Signs Temperature 97.8 F 02/25/24 09:19 Temperature Source Temporal Artery Scan 02/25/24 09:19 Pulse Rate 73 02/25/24 09:19 Respiratory Rate 16 02/25/24 09:19 Blood Pressure 99/64 02/25/24 09:19 Blood Pressure Mean 75 02/25/24 09:19 Blood Pressure Position Sitting 02/25/24 09:19 Pulse Oximetry 97 02/25/24 09:19 Oxygen Delivery Method Room Air 02/25/24 09:19 Vital Signs Temperature 97.8 F 02/25/24 09:19 Pulse Rate 73 02/25/24 09:19 Respiratory Rate 16 02/25/24 09:19 Blood Pressure 99/64 02/25/24 09:19 Pulse Oximetry 97 02/25/24 09:19 Oxygen Delivery Method Room Air 02/25/24 09:19 Temperature 97.8 F 02/25/24 09:19 Pulse Rate 73 02/25/24 09:19 Respiratory Rate 16 02/25/24 09:19 Blood Pressure 99/64 02/25/24 09:19 Pulse Oximetry 97 02/25/24 09:19 Oxygen Delivery Method Room Air 02/25/24 09:19 Discharge Plan Discharge Clinical Impression: Surgery follow-up Patient Disposition: Home, Self-Care Condition: Improved Additional Instructions: I would recommend that you follow-up with your surgeon when you get back to [place]. you will likely have a little bit of drainage from these wounds over the next couple of days. For significant drainage, increasing redness swelling pain or fevers, you should be seen again. Prescriptions: No Action No Known Home Medications Stand Alone Forms: MailFrontierth Info Instructions
== END 2024-02-25 10:20 | disposition home or self-care (01) ==
LOC: ED 10:14
PROVIDERS: Emergency Provider Emergency Medicine
DX: Z48.03 Encounter for change or removal of drains (principal)
CPT/HCPCS: 99283; 99284